=== PATIENT | male | born 1970 | race African-American/Black ===

== ENCOUNTER 2024-06-30 10:58 | Emergency (ER) | payer BC, SELFPAY ==
--- NOTE | ~2024-06-30 | XR_ITS ---
EXAMINATION: XR chest 1V portable DATE: 06/30/2024 12:51 INDICATION: Epigastric abdominal pain. TECHNIQUE: A single frontal view of the chest was obtained. COMPARISON: None. FINDINGS: There is no pneumonia, pleural effusion, or pneumothorax. The heart size is normal. IMPRESSION: 1. No acute cardiopulmonary disease. Reviewed, dictated and finalized at location B.
[2024-06-30 11:00] VITALS: BP 131/83; PULSE 71; RESP 16; TEMP 36.4; O2SAT 100
[2024-06-30 11:20] VITALS: BP 121/78; PULSE 72; RESP 18; O2SAT 100
[2024-06-30 11:55] LABS: Basophils Percent Auto 0.6 % (0.2-1.2); Eosinophils Percent Auto 0.3 % (0-4.4); Hematocrit 42.8 % (42.0-52.0); Hemoglobin 14.2 g/dL (14.0-18.0); Lymphocytes Absolute Auto 1.15 K/mm3 (0.9-3.2); Lymphocytes Percent Auto 36.4 % (18.3-44.2); Mean Corpuscular HGB Conc 33.2 g/dl (32-36); Mean Corpuscular Hemoglobin 27.1 pg (26-34); Mean Corpuscular Volume 81.7 fl (80-100); Mean Platelet Volume 8.4 fl (7.4-10.4); Monocytes Absolute Auto 0.4 K/mm3 (0.1-0.6); Neutrophils Absolute Auto 1.6 K/mm3 (1.3-6.7); Neutrophils Percent Auto 50.7 % (45.5-73.1); Platelet Count Result 245 k/mm3 (150-375); Red Blood Count 5.24 M/mm3 (4.6-6.20); Red Cell Distribution Width 13.3 % (11.5-14.5); White Blood Count 3.2 K/mm3 (4.5-10.0)
[2024-06-30 11:58] LABS: Add Urine Microscopic? NO; Appearance Urine Clear (Clear); Bilirubin Urine Negative (Negative); Blood Urine Negative (Negative); Color Urine Yellow (Yellow); Glucose Urine UA Negative (Negative); Ketones Urine Trace mg/dL (Negative); Leukocyte Esterase Ur Negative LEU/UL (Negative); Nitrate Urine Negative (Negative); Protein Urine Negative (Negative); Specific Grav Ur 1.012 (1.001-1.035); Urobilinogen Urine 0.2 mg/dL (<2.0)
[2024-06-30 12:06] LABS: Alanine Aminotransferase 24 U/L (6-50); Albumin Level 4.5 g/dL (3.5-5.1); Alkaline Phosphatase 67 U/L (38-126); Anion Gap 8 mmol/L (4-12); Aspartate Amino Transferase 28 U/L (17-59); Bilirubin,Total 0.7 mg/dL (0.2-1.3); Blood Urea Nitrogen 11 mg/dL (9-20); Calcium 9.8 mg/dL (8.4-10.2); Carbon Dioxide 27 mmol/L (22-30); Chloride 102 mmol/L (98-107); Estimated CRCL calculation 85 ml/min; Estimated Glomerular Filt Rate > 60; Glucose 96 mg/dL (65-110); Lipase 65 U/L (23-300); Potassium 3.9 mmol/L (3.4-5.0); Sodium 137 mmol/L (137-145)
--- NOTE | 2024-06-30 12:08 | ECG_ITS ---
Test Date: 2024-06-30 12:48:37 Measurements Intervals [place] Rate: 68 P: 68 HI: 173 QRS: 73 QRSD: 89 T: 71 QT: 381 QTc: 407 Interpretive Statements SINUS RHYTHM No previous ECG available for comparison Electronically Signed On 07-01-2024 16:39:00 CDT by Bala Tobar M.D.
--- NOTE | 2024-06-30 12:24 | ED_ITS ---
HPI - Abdominal Pain General Chief Complaint: Abdominal Pain Stated Complaint: chest and abd pain with eating, heartburn Time Seen by Provider: 06/30/24 12:02 History of Present Illness HPI narrative: 54-year-old male with no significant past medical history presenting to the emergency department for evaluation of left upper quadrant abdominal discomfort and epigastric burning with GERD secondary to food. Patient states for last 5-7 days he has been having GERD like symptoms with food despite never having any history of GERD or reflux. No history of gallstones or gallbladder issues. No right-sided abdominal tenderness or quadrant pain. No back pain. No shortness of breath, nausea vomiting, fever chills. He takes Tums at home which does alleviate the symptoms with a come back with eating and drinking. Has not been seen by GI doctor or his primary care provider for this. Has an upcoming appointment this week with his PCP as a wellness annual visit. No allergies. No significant drinking, vaping, smoking. No drug use. No injury or trauma. Related Data Allergies Allergy/AdvReac Type Severity Reaction Status Date / Time Penicillins Allergy Unknown Verified 06/30/24 11:00 Review of Systems 2 Review of Systems: As reviewed above in HPI Exam 2 Narrative: GENERAL: [Well-appearing, well-nourished, and in no acute distress.] HEAD: [Normocephalic, atraumatic.] EYES: [PERRLA and EOMI.] ENT: Nares clear, no rhinorrhea or epistaxis. Mucous membranes moist. NECK: Supple. CHEST: [Clear to auscultation. No respiratory distress.] HEART: [Regular rate and rhythm]. No murmur heard. [Normal peripheral pulses.] ABDOMEN: [Soft, nondistended], [nontender], [No rigidity or guarding] no tenderness in the right upper quadrant, no Jiménez sign, no overlying skin changes. EXTREMITIES: Normal range of motion. [No edema.] SKIN: Warm, dry, no rash. NEURO: [No focal deficits]. Alert and oriented [x3.] PSYCH: [Normal mood and affect.] Course Vital Signs Vital signs: Vital Signs Temperature 36.4 C 06/30/24 11:00 Pulse Rate 71 06/30/24 11:00 Respiratory Rate 16 06/30/24 11:00 Blood Pressure 131/83 06/30/24 11:00 Pulse Oximetry 100 06/30/24 11:00 Temperature 36.4 C 06/30/24 11:00 Pulse Rate 72 06/30/24 11:20 Respiratory Rate 18 06/30/24 11:20 Blood Pressure 121/78 06/30/24 11:20 Pulse Oximetry 100 06/30/24 11:20 MDM - Abdominal Pain MDM Narrative Medical decision making narrative: 54-year-old male presenting with left upper quadrant epigastric pain they describes as a burning sensation with GERD like symptoms after eating. Symptoms going on for last 5-7 days and responsive to Tums and [id number] therapy. He is otherwise well-appearing with normal vital signs. Soft nontender nondistended abdomen. No right upper quadrant tenderness, no back pain. No Jiménez sign. Considerations presently are for gastritis, gastroenteritis, GERD, peptic ulcer disease, delayed gastric emptying, low suspicion ACS or cardiac in origin. Given his age a workup was ordered including a troponin, CBC, CMP, lipase, EKG, upright chest x-ray. He was treated symptomatically with Maalox and Pepcid with improved pain control afterwards. Placed on director of cardiac cath lab and pulse oximetry and frequently re-evaluated. Workup shows no leukocytosis or anemia. Normal platelet count. Electrolytes within normal limits, normal renal and hepatic function panel. Negative troponin. Urinalysis shows no signs of infection. Chest x-ray shows no acute cardiopulmonary process. EKG shows normal sinus rhythm with early repolarization pattern. Patient is safe and stable for discharge home at this time. Medical Records Attestation: I reviewed the patient's medical records. Lab Data Attestation: I reviewed the patient's lab results. 06/30/24 11:48 06/30/24 11:48 Labs: Lab Results 06/30/24 Range/Units 11:48 WBC 3.2 L (4.5-10.0) K/mm3 RBC 5.24 (4.6-6.20) M/mm3 Hgb 14.2 (14.0-18.0) g/dL Hct 42.8 (42.0-52.0) % MCV 81.7 (80-100) fl MCH 27.1 (26-34) pg MCHC 33.2 (32-36) g/dl RDW 13.3 (11.5-14.5) % Plt Count 245 (150-375) k/mm3 MPV 8.4 (7.4-10.4) fl Immature Gran % (Auto) 0.0 (0-0.5) % Neut % (Auto) 50.7 (45.5-73.1) % Lymph % (Auto) 36.4 (18.3-44.2) % Woodward % (Auto) 12.0 H (2.6-8.5) % Eos % (Auto) 0.3 (0-4.4) % Baso % (Auto) 0.6 (0.2-1.2) % Lymph # (Auto) 1.15 (0.9-3.2) K/mm3 Woodward # (Auto) 0.4 (0.1-0.6) K/mm3 Eos # (Auto) 0.0 (0-0.3) K/mm3 Baso # (Auto) 0.0 (0.0-0.1) K/mm3 Abs Immat Gran (auto) 0.00 (0.00-0.031) K/mm3 Absolute Neuts (auto) 1.6 (1.3-6.7) K/mm3 Absolute Nucleated RBC 0.000 (0.0-0.012) K/mm3 Nucleated RBC % 0.0 (0.0-0.2) % Sodium 137 (137-145) mmol/L Potassium 3.9 (3.4-5.0) mmol/L Chloride 102 (98-107) mmol/L Carbon Dioxide 27 (22-30) mmol/L Anion Gap 8 (4-12) mmol/L BUN 11 (9-20) mg/dL Creatinine 0.82 (0.7-1.3) mg/dL Estim Creat Clear Calc 85 ml/min Estimated GFR > 60 (59 - ) Glucose 96 (65-110) mg/dL Calcium 9.8 (8.4-10.2) mg/dL Total Bilirubin 0.7 (0.2-1.3) mg/dL AST 28 (17-59) U/L ALT 24 (6-50) U/L Alkaline Phosphatase 67 (38-126) U/L Troponin I < 0.012 (0.000-0.034) ng/mL Total Protein 7.0 (6.3-8.2) g/dL Albumin 4.5 (3.5-5.1) g/dL Lipase 65 (23-300) U/L Urine Color Yellow (Yellow) Urine Appearance Clear (Clear) Urine pH 6.0 (5.0-9.0) Ur Specific [place] 1.012 (1.001-1.035) Urine Protein Negative (Negative) mg/dL Urine Glucose (UA) Negative (Negative) mg/dL Urine Ketones Trace H (Negative) mg/dL Ur Blood (Man) Negative (Negative) Urine Nitrate Negative (Negative) Urine Bilirubin Negative (Negative) Urine Urobilinogen 0.2 (<2.0) mg/dL Leukocyte Esterase Rfl Negative (Negative) SHANE/UL Imaging Data Attestation: I personally reviewed and interpreted this imaging study as follows: My impression: Impressions Chest X-Ray 06/30/24 13:00 IMPRESSION: 1. No acute cardiopulmonary disease. Radiologist's impression: ITS Impressions Chest X-Ray 06/30/24 13:00 IMPRESSION: 1. No acute cardiopulmonary disease. ECG Data EKG #1: Attestation: I personally reviewed and interpreted this ECG as follows: ECG completion date: 06/30/24 ECG completion time: 12:48 Prior ECG tracings: not available for review Interpretation: Benign early repolarization pattern with broad J points slightly elevated in multiple leads. No ST segment elevations, no depressions or inversions. Regular rate, regular rhythm and axis. No QTC prolongation, QTC 407, QRS 89, AR interval 173. Final interpretation normal sinus rhythm with benign repolarization pattern Discharge Plan Discharge Clinical Impression: Gastritis, GERD (gastroesophageal reflux disease) Patient Disposition: Home, Self-Care Condition: Stable Instructions: Antibiotic Form, Gastritis (DC), Diet for Stomach Ulcers and Gastritis (ED), GERD (Gastroesophageal Reflux Disease) (DC) Additional Instructions: Your cardiac workup was unremarkable. No sign of infection on your laboratory studies, no bleeding, x-ray without any concerns. Likely you have gastritis or GERD and we will prescribe some medications to take on a daily basis to help with the symptoms. Follow-up with regular doctor and you might end up getting a GI referral for endoscopy if this is not responding to traditional therapy. Return with any new or worsening concerns at any time. Patient Language: Uzbek Prescriptions: New alum-mag hydroxide-simeth [Maalox Advanced] 200-200-20 mg/5 mL suspension 15 ml PO QID PRN (Reason: dyspepsia) Qty: 3000 0RF Rx Instructions: administer between meals and at bedtime pantoprazole [Protonix] 20 mg tablet,delayed release (DR/EC) 20 mg PO HS 28 Days Qty: 28 0RF Follow-up/Referrals: Eleuterio,Tiara Cuello MD [Primary Care Provider] - Time of Disposition: 14:45
[2024-06-30] MEDS: MAG HYDROX/AL HYDROX/SIMETH 30 ML UDC PO (12:30)
[2024-06-30] MEDS: FAMOTIDINE 20 MG/2 ML VIAL IV PUSH (12:30)
--- OUTSIDE RECORDS SUMMARY | 2024-06-30 12:49 | XMS_ITS | Clinical Summary ---
Author Organization [facility] Address [address] [place] [address] Care Team Providers Care Account Advisor Name Role Phone Poli Cochran DO Primary Care Provider [phone] Source Comments [facility],non-owned Affiliates and Associated Physician Practices is amultiple site organization consisting of ambulatory clinics and hospital sitesin [place], [place], [place]. This disclosure is being madepursuant to the Care Everywhere program and may not contain all information available regarding this patient. Last updated 18.[facility] Allergies Active Allergy Reactions Criticality Noted Date Comments Penicillins 05/17/2009 Medications * Be aware that medications may not be up to date on this document. Alwaysverify current medications with the patient. Medication Sig Dispensed Refills Start Date End Date Status fish oil/omega-3 fatty acids (FISH OIL) 1000 MG capsule Take 1,000 mg by mouth once daily. Active Multiple Vitamins-Minerals (MJ MULTIVITAMIN FOR MEN) TABS Take 1 Tab by mouth once daily. Active Probiotic Product (PROBIOTIC DAILY PO) Take by mouth once daily Active CINNAMON PO Active OtherIndications:Tumeri c Take 500 mg by mouth 2 times daily Reasons: Tumeric Active Iron Combinations (IRON COMPLEX PO) Active melatonin 5 MG capsule Take 5 mg by mouth at bedtime Active Ascorbic Acid (DOROTEO-C PO) Active Glucosamine HCl (GLUCOSAMINE PO) Active Marco A, Zingiber officinalis, (MARCO A ROOT PO) Active BLACK ELDERBERRY PO Activ e CRANBERRY PO Active VITAMIN D PO Active MILK THISTLE PO Active BIOTIN PO Active Active Problems Problem Noted Date Diagnosed Date Onychomycosis 02/26/2018 Immunizations Name Administration Dates Next Due INFLUENZA VACCINE 01/04/2018, 6,01/17/2015,02/15/2014,02/01/2013,,02/06/2011 TDAP (7yrs+) 10/15/2011 Social History Tobacco Use Types Packs/Day Years Used Date Smoking Tobacco: Never Smokeless Tobacco: Never Alcohol Use Standard Drinks/Week Comments Yes 0 (1 standard drink = 0.6 oz pur e alcohol) occasionally PHQ-2 Answer Date Recorded PHQ2 TOTAL SCORE 0 2021 Sex and Gender Information Value Date Recorded Sex Assigned at Male 12/22/2020 12:23 PM CDT Gender Identity Male 12/22/2020 12:23 PM CDT Sexual Orientation Straight 12/22/2020 12 :23 PM CDT Last Filed Vital Signs Vital Sign Reading Time Taken Comments Blood Pressure 118/75 2021 7:41 AM TABLE INSPECTOR Pulse 69 2021 7:41 AM TABLE INSPECTOR Temperature 36.6 C (97.9 F) 05/02/2020 7:34 AM TABLE INSPECTOR Respiratory Rate 16 2021 7:41 AM TABLE INSPECTOR Oxygen Saturation 99% 05/02/2020 7:34 AM TABLE INSPECTOR Inhaled Oxygen Concentration - - Weight 94.3 kg (208 lb) 2021 7:41 AM TABLE INSPECTOR Height 172.7 cm (5' 8 ) 2021 7:41 AM TABLE INSPECTOR Body Mass Index 31.63 2021 7:41 AM TABLE INSPECTOR Plan of Treatment Health Maintenance Due Date Last Done Comments COLOGUARD (AGES 45-75) - COLON CA SCREENING 1971 COLON MONITORING 1971 COLONOSCOPY - COLON CA SCREENING 1971 CT COLONOGRAPHY - COLON CA SCREENING 1971 Colorectal Cancer Screening 1971 FIT - COLON CA SCREENING 1971 FLEX SIG - COLON CA SCREENING 1971 HIV SCREENING 1986 HEPATITIS C SCREENING 04/26/1989 HEPATITIS B VACCINE (1 of 3 - 19+ 3-dose series) 1990 PNEUMOCOCCAL VACCINE 50+ (1 of 1 - PCV) 2021 ZOSTER VACCINE (1 of 2) 2021 DTAP/TDAP/TD VACCINES (2 - Td or Tdap) 10/14/2021 10/15/2011 COVID-19 VACCINE (3 - season) 2023 04/17/2021, 06/25/2020 INFLUENZA VACCINE (#1) 2023 , 01/21/2021, 01/24/2020, Additional history exists DEPRESSION SCREENING 04/20/2024 2021 SCREENING FOR DIABETES 2024 2, 05/02/2020, 03/01/2019, Additional history exists LIPID TESTING 2026 2021, 04/20, 03/01/2019, Additional history exists HIB VACCINE Aged Out No longer eligi ble based on patient's age to complete this topic HPV VACCINE Aged Out No longer eligi ble based on patient's age to complete this topic MENINGOCOCCAL (Group B) VACCINE SHARED DECISION-MAKING Aged Out No longer eligible based on patient's age to complete this topic MENINGOCOCCAL GROUPS A/C/Y/W VACCINE Aged Out No longer eligible based on patient's age to complete this topic PNEUMOCOCCAL VACCINE Aged Out No long er eligible based on patient's age to complete this topic Procedures Procedure Name Priority Date/Time Associated Diagnosis Comments COMPREHENSIVE METABOLIC PANEL Routine 2021 8:19 AM TABLE INSPECTOR Routine general medical examination at a health care facility LIPID PROFILE Routine 2021 8:19 AM TABLE INSPECTOR Routine general medical examination at a health care facility from Last 3 Months or Most Recently Relevant to Health Maintenance Results * COMPREHENSIVE METABOLIC PANEL (2021 8:19 AM TABLE INSPECTOR) Glucose 101 70 - 105 mg/dL [facility] ACCOUNT BILL BUN 10 8.4 - 25.7 mg/dL [facility] ACCOUNT BILL Creatinine 0.96 0.72 - 1.25 mg/dL [facility] ACCOUNT BILL eGFR by MDRD >60 >60 mL/min/1.7 3m2 [facility] ACCOUNT BILL eGFR by MDRD >60 >60 mL/min/1.7 3m2 [facility] ACCOUNT BILL Sodium 139 136 - 145 mmol/L [facility] ACCOUNT BILL Potassium 4.5 3.5 - 5.1 mmol/L [facility] ACCOUNT BILL Chloride 103 98 - 107 mmol/L [facility] ACCOUNT BILL CO2 28 23 - 31 mmol/L [facility] ACCOUNT BILL Calcium 9.9 8.4 - 10.4 mg/dL [facility] ACCOUNT BILL Protein Total 7.3 6.4 - 8.3 gm/dL [facility] ACCOUNT BILL Albumin 4.4 3.5 - 5.2 gm/dL [facility] ACCOUNT BILL Bilirubin Total 0.7 0.2 - 1.2 mg/dL [facility] ACCOUNT BILL Alkaline Phosphatase 64 40 - 150 U/L [facility] ACCOUNT BILL AST 22 5 - 34 U/L [facility] ACCOUNT BILL ALT 22 0 - 61 U/L [facility] ACCOUNT BILL Comment:FASTING Blood BLOOD SPECIMEN / Unknown 2021 8:19 AM TABLE INSPECTOR 2021 Narrative Resulting Agency Comment Lab Testing performed at: [place] [address] [address] [place] [id number] Poli Cochran DO LAB - CHEMISTRY DUTCH AL[facility] ACCOUNT BILL [address] [place] [address] * (ABNORMAL) LIPID PROFILE (2021 8:19 AM TABLE INSPECTOR) Cholesterol 203(H) <200 mg/dL [facility] ACCOUNT BILL Triglycerides 55 <150 mg/dL [facility] ACCOUNT BILL HDL Cholesterol 58 >40 mg/dL [facility] ACCOUNT BILL VLDL Calculated 11 <=30 mg/dL [facility] ACCOUNT BILL LDL Calculated 134(H) <130 mg/dL [facility] ACCOUNT BILL Comment:FASTING Blood BLOOD SPECIMEN / Unknown 2021 8:19 AM TABLE INSPECTOR 2021 Narrative Resulting Agency Comment Lab Testing performed at: [place] [address] [address] [place] [id number] Poli Cochran DO LAB - CHEMISTRY DUTCH L[facility] ACCOUNT BILL [address] [place] [address] from Last 3 Months or Most Recently Relevant to Health Maintenance Care Teams Account Advisor Relationship Specialty Start Date End Date Poli Cochran DO [address] [place] [address] PCP - General 05/17/09
--- OUTSIDE RECORDS SUMMARY | 2024-06-30 12:49 | XMS_ITS | Referral Summary ---
Author Organization [facility] Address [address] [place] [address] Care Team Providers Care Shipping And Receiving Associate Name Role Phone Poli Cochran DO Primary Care Provider [phone] Source Comments [facility],non-owned Affiliates and Associated Physician Practices is amultiple site organization consisting of ambulatory clinics and hospital sitesin [place], [place], [place] and [place]. This disclosure is being madepursuant to the Care Everywhere program and may not contain all information available regarding this patient. Last updated 18.[facility] Allergies Active Allergy Reactions Criticality Noted [...] Comments Blood Pressure 118/75 2021 7:41 AM REGISTERED DIETICIAN Pulse 69 2021 7:41 AM REGISTERED DIETICIAN Temperature 36.6 C (97.9 F) 05/02/2020 7:34 AM REGISTERED DIETICIAN Respiratory Rate 16 2021 7:41 AM REGISTERED DIETICIAN Oxygen Saturation 99% 05/02/2020 7:34 AM REGISTERED DIETICIAN Inhaled Oxygen Concentration - - Weight 94.3 kg (208 lb) 2021 7:41 AM REGISTERED DIETICIAN Height 172.7 cm (5' 8 ) 2021 7:41 AM REGISTERED DIETICIAN Body Mass Index 31.63 2021 7:41 AM REGISTERED DIETICIAN Plan of Treatment Not on file Procedures Procedure Name Priority Date/Time Associated Diagnosis Comments COMPREHENSIVE METABOLIC PANEL Routine 2021 8:19 AM REGISTERED DIETICIAN Routine general medical examination at a health care facility LIPID PROFILE Routine 2021 8:19 AM REGISTERED DIETICIAN Routine general medical examination at a health care facility from Last 3 Months or Most Recently Relevant to Health Maintenance Results * COMPREHENSIVE METABOLIC PANEL (2021 8:19 AM REGISTERED DIETICIAN) Glucose 101 70 - 105 mg/dL [facility] [...] BLOOD SPECIMEN / Unknown 2021 8:19 AM REGISTERED DIETICIAN 2021 Narrative Resulting Agency Comment Lab Testing performed at: [address] [place] [id number] Poli Cochran DO LAB - CHEMISTRY DUTCH LAM[facility] ACCOUNT BILL [address] [place] [address] * (ABNORMAL) LIPID PROFILE (2021 8:19 AM REGISTERED DIETICIAN) Cholesterol 203(H) <200 mg/dL [facility] ACCOUNT BILL Triglycerides 55 <150 mg/dL [facility] ACCOUNT BILL HDL Cholesterol 58 >40 mg/dL [facility] ACCOUNT BILL VLDL Calculated 11 <=30 mg/dL [facility] ACCOUNT BILL LDL Calculated 134(H) <130 mg/dL [facility] ACCOUNT BILL Comment:FASTING Blood BLOOD SPECIMEN / Unknown 2021 8:19 AM REGISTERED DIETICIAN 2021 Narrative Resulting Agency Comment Lab Testing performed at: [facility] [address] [place] [id number] Poli Cochran DO LAB - CHEMISTRY DUTCH LAMB [facility] ACCOUNT BILL [address] [place] [address] from Last 3 Months or Most Recently Relevant to Health Maintenance Care Teams Shipping And Receiving Associate Relationship Specialty Start Date End Date Poli Cochran DO [address] [place] [address] PCP - General 05/17/09
--- OUTSIDE RECORDS SUMMARY | 2024-06-30 12:49 | XMS_ITS | Clinical Summary ---
Author Organization [facility] Address [address] [place] [address] Care Team Providers Care Automation Sales Manager Name Role Phone Unavailable Primary Care Provider Unavailabl e Social History Tobacco Use Types Packs/Day Years Used Date Smoking Tobacco: Never Assessed Sex and Gender Information Value Date Recorded Sex Assigned at Not on file Legal Sex Male 11:01 AM TEST TECH Gender Identity Not on file Sexual Orientation Not on file Plan of Treatment Health Maintenance Due Date Last Done Comments Hepatitis C Virus (HCV) Screening 1971 TdaP Immunization 1971 Hepatitis B Immunization (1 of 3 - 19+ 3-dose series) 1990 Colonoscopy 2016 Colorectal Cancer Screening 2016 Cologuard 2021 Immunochemical Fecal Occult Blood 2021 Pneumococcal Immunization (5 0+ years) (1 of 1 - PCV) 2021 Zoster Immunization (1 of 2) 2021 Influenza Immunization (#1) 2023 01/24/2020 SARS-COV-2 Immunization ( - 2023-25 season) 2023 Respiratory Syncytial Virus (RSV) Immunization (Adult) (1 - 1-dose 75+ series) 2046 Meningococcal Immunization (ACWY) Aged Out No longer eligible based on patient's age to complete this topic Pneumococcal Immunization Combined Aged Out No longer eligible based on patient's age to complete this topic Rotavirus Immunization Aged Out No lo nger eligible based on patient's age to complete this topic
--- OUTSIDE RECORDS SUMMARY | 2024-06-30 12:49 | XMS_ITS | Encounter Summary ---
Author Organization [facility] Address [address] [place] [address] Care Team Providers Care Button Cutter Name Role Phone Poli Cochran DO Primary Care Provider [phone] Encounter Details Date Type Department Care Team (Late st Contact Info) Description 10/15/2011 [facility]PT Poli Cochran DO [address] [place] [address] Social History Tobacco Use Types Packs/Day Years Used Date Smoking Tobacco: Never Smokeless Tobacco: Never Alcohol Use Standard Drinks/Week Comments Yes 0 (1 standard drink = 0.6 oz pur e alcohol) occasionally Sex and Gender Information Value Date Recorded Sex Assigned at Male 12/22/2020 12:23 PM CDT Gender Identity Male 12/22/2020 12:23 PM CDT Sexual Orientation Straight 12/22/2020 12 :23 PM CDT documented as of this encounter Plan of Treatment Not on file documented as of this encounter Visit Diagnoses Not on filedocumented in this encounter Care Teams Button Cutter Relationship Specialty Start Date End Date Poli Cochran DO [address] [place] [address] PCP - General 05/17/09 documented as of this encounter
--- OUTSIDE RECORDS SUMMARY | 2024-06-30 12:49 | XMS_ITS | Patient Health Summary ---
Author Organization [facility] Address [address] [address] Care Team Providers Care Edge Kitter Name Role Phone CochranChanoPoli Primary Care Provider [phone] Note from [facility],non-owned Affiliates and Associated Physician Practices is amultiple site organization consisting of ambulatory clinics and hospital sitesin [place], [place], [place] and [place]. This disclosure is being madepursuant to the Care Everywhere program and may not contain all information available regarding this patient. Last updated 18.[facility] [place]cie Allergies * Penicillins Medications * Be aware that medications may not be up to date on this document. Alwaysverify current medications with the patient. * fish oil/omega-3 fatty acids (FISH OIL) 1000 MG capsule Take 1,000 mg by mouth once daily. * Multiple Vitamins-Minerals (MJ MULTIVITAMIN FOR MEN) TABS Take 1 Tab by mouth once daily. * Probiotic Product (PROBIOTIC DAILY PO) Take by mouth once daily * CINNAMON PO * Other Take 500 mg by mouth 2 times daily Reasons: Tumeric * Iron Combinations (IRON COMPLEX PO) * melatonin 5 MG capsule Take 5 mg by mouth at bedtime * Ascorbic Acid (DOROTEO-C PO) * Glucosamine HCl (GLUCOSAMINE PO) * Marco A, Zingiber officinalis, (MARCO A ROOT PO) * BLACK ELDERBERRY PO * CRANBERRY PO * VITAMIN D PO * MILK THISTLE PO * BIOTIN PO Active Problems Problem Noted Date Diagnosed Date Onychomycosis 02/26/2018 Immunizations * INFLUENZA VACCINE(Given 01/04/2018, 01/23/2016, 01/17/2015, 02/15/2014, 02/01/2013, 02/04/2012, 02/06/2011) * TDAP (7yrs+)(Given 10/15/2011) Social History Tobacco Use Types Packs/Day Years [...] Comments Blood Pressure 118/75 2021 7:41 AM NURSES SUPERVISOR Pulse 69 2021 7:41 AM NURSES SUPERVISOR Temperature 36.6 C (97.9 F) 05/02/2020 7:34 AM NURSES SUPERVISOR Respiratory Rate 16 2021 7:41 AM NURSES SUPERVISOR Oxygen Saturation 99% 05/02/2020 7:34 AM NURSES SUPERVISOR Inhaled Oxygen Concentration - - Weight 94.3 kg (208 lb) 2021 7:41 AM NURSES SUPERVISOR Height 172.7 cm (5' 8 ) 2021 7:41 AM NURSES SUPERVISOR Body Mass Index 31.63 2021 7:41 AM NURSES SUPERVISOR Procedures * TSH REFLEX FREE T4(Performed 2021) Performed for Routine general medical examination at a health care facility * LIPID PROFILE(Performed 2021) Performed for Routine general medical examination at a health care facility * COMPREHENSIVE METABOLIC PANEL(Performed 2021) Performed for Routine general medical examination at a health care facility * CBC W AUTO DIFFERENTIAL(Performed 2021) Performed for Routine general medical examination at a health care facility * PROSTATE SPECIFIC ANTIGEN SCREEN(Performed 05/02/2020) Performed for Routine general medical examination at a health care facility * TSH(Performed 05/02/2020) Performed for Routine general medical examination at a health care facility * LIPID PROFILE(Performed 05/02/2020) Performed for Routine general medical examination at a health care facility * COMPREHENSIVE METABOLIC PANEL(Performed 05/02/2020) Performed for Routine general medical examination at a health care facility * CBC W AUTO DIFFERENTIAL(Performed 05/02/2020) Performed for Routine general medical examination at a health care facility * TSH(Performed 03/01/2019) Performed for Routine general medical examination at a health care facility * LIPID PROFILE(Performed 03/01/2019) Performed for Routine general medical examination at a health care facility * COMPREHENSIVE METABOLIC PANEL(Performed 03/01/2019) Performed for Routine general medical examination at a health care facility * CBC W AUTO DIFFERENTIAL(Performed 03/01/2019) Performed for Routine general medical examination at a health care facility * PROSTATE SPECIFIC ANTIGEN SCREEN(Performed 02/26/2018) Performed for Routine general medical examination at a health care facility * TSH(Performed 02/26/2018) Performed for Routine general medical examination at a health care facility * LIPID PROFILE(Performed 02/26/2018) Performed for Routine general medical examination at a health care facility * COMPREHENSIVE METABOLIC PANEL(Performed 02/26/2018) Performed for Routine general medical examination at a health care facility * CBC W AUTO DIFFERENTIAL(Performed 02/26/2018) Performed for Routine general medical examination at a health care facility * OCCULT BLOOD FECES 1-3 SCREEN POC (AMB) STL(Performed 02/26/2018) Performed for Routine general medical examination at a health care facility * T4 TOTAL(Performed 02/24/2017) Performed for Irregular heart beat * TSH(Performed 02/24/2017) Performed for Irregular heart beat * LIPID PROFILE(Performed 02/24/2017) Performed for Routine general medical examination at a health care facility * COMPREHENSIVE METABOLIC PANEL(Performed 02/24/2017) Performed for Routine general medical examination at a health care facility * CBC W AUTO DIFFERENTIAL(Performed 02/24/2017) Performed for Routine general medical examination at a health care facility * EKG 12-LEAD(Performed 02/24/2017) Performed for Irregular heart beat * MRI LUMBAR SPINE WO CONTRAST(Performed 03/21/2016) Performed for Acute left-sided low back pain without sciatica * TSH(Performed 09/12/2015) Performed for Routine general medical examination at a health care facility * PROSTATE SPECIFIC ANTIGEN SCREEN(Performed 09/12/2015) Performed for Routine general medical examination at a health care facility * LIPID PROFILE(Performed 09/12/2015) Performed for Routine general medical examination at a health care facility * COMPREHENSIVE METABOLIC PANEL(Performed 09/12/2015) Performed for Routine general medical examination at a health care facility * CBC W AUTO DIFFERENTIAL(Performed 09/12/2015) Performed for Routine general medical examination at a health care facility * US SCROTUM W DOPPLER(Performed 07/31/2010) Performed for Testicular mass * XR LUMBAR SPINE 2 OR 3VW(Performed 05/08/2010) Performed for Lower back pain Results * TSH REFLEX FREE T4 (2021 8:19 AM NURSES SUPERVISOR) Pathologist [facility] [place] TSH 0.909 0.350 - 4.940 uIU/mL [facility] ACCOUNT BILL Comment: FASTING Blood BLOOD SPECIMEN / Unknown 2021 8:19 AM NURSES SUPERVISOR 2021 Narrative Resulting Agency Comment Lab Testing performed at: [address] [place] [phone] Poli Cochran DO LAB - CHEMISTRY DUTCH LAMB [facility] ACCOUNT BILL [address] [place] [address] * (ABNORMAL) CBC WITH DIFFERENTIAL (2021 8:19 AM NURSES SUPERVISOR) Only the most recent of6 resultswithin the time period is included. Pathologist [facility] [place] WBC 3.2(L) 4.4 - 10.7 x10E9/L [facility] ACCOUNT BILL RBC 5.42(H) 3.80 - 5.40 x10E12/L [facility] ACCOUNT BILL Hemoglobin 14.3 12.0 - 17.6 gm/dL [facility] ACCOUNT BILL Hematocrit 46.2 35.2 - 51.7 % [facility] ACCOUNT BILL MCV 85.2 80.7 - 98.3 fl [facility] ACCOUNT BILL MCH 26.4(L) 26.7 - 34.0 pg [facility] ACCOUNT BILL MCHC 31.0 30.8 - 35.9 gm/dL [facility] ACCOUNT BILL RDW 13.7 12.1 - 14.9 % [facility] ACCOUNT BILL Platelet Count 295 153 - 416 x10E9/L [facility] ACCOUNT BILL Comment:MPV FL BLOOD ([facility]) 8 .9 fl 9.4-12.9 L Granulocytes % 39.8(L) 44.0 - 73.0 % [facility] ACCOUNT BILL Lymphocytes % 44.2(H) 20.0 - 43.0 % [facility] ACCOUNT BILL Monocytes % 14.2(H) 5.0 - 13.0 % [facility] ACCOUNT BILL Eosinophils % 0.9 0.0 - 6.0 % [facility] ACCOUNT BILL Basophils % 0.9 0.0 - 2.0 % [facility] ACCOUNT BILL Granulocytes Absolute 1.26(L) 2.01 - 7.14 x10E9/L [facility] ACCOUNT BILL Lymphocytes Absolute 1.40 1.07 - 3.94 x10E9/L [facility] ACCOUNT BILL Monocytes Absolute 0.45 0.26 - 1.07 x10E9/L [facility] ACCOUNT BILL Eosinophils Absolute 0.03 0 - 0.47 x10E9/L [facility] ACCOUNT BILL Basophils Absolute 0.03 0 - 0.08 x10E9/L [facility] ACCOUNT BILL Immature Granulocytes 0.0 0 - 1 % [facility] ACCOUNT BILL Immature Granulocytes Absolute 0.00 0.00 - 0.06 x10E9/L [facility] ACCOUNT BILL nRBC 0 /100 WBC [facility] ACCOUNT BILL Comment: FASTING Blood BLOOD SPECIMEN / Unknown 2021 8:19 AM NURSES SUPERVISOR 2021 Narrative Resulting Agency Comment Lab Testing performed at: [address] [place] [phone] Poli Cochran DO LAB - HEMATOLOGY ORD ERABLES [facility] ACCOUNT BILL [address] [place] [address] * COMPREHENSIVE METABOLIC PANEL (2021 8:19 AM NURSES SUPERVISOR) Only the most recent of6 resultswithin the time period is included. Glucose 101 70 - 105 mg/dL [facility] [...] BLOOD SPECIMEN / Unknown 2021 8:19 AM NURSES SUPERVISOR 2021 Narrative Resulting Agency Comment Lab Testing performed at: [address] [place] [phone] Poli Cochran DO LAB - CHEMISTRY DUTCH LAMB [facility] ACCOUNT BILL [address] [place] [address] * (ABNORMAL) LIPID PROFILE (2021 8:19 AM NURSES SUPERVISOR) Only the most recent of6 resultswithin the time period is included. Cholesterol 203(H) <200 mg/dL [facility] ACCOUNT BILL Triglycerides 55 <150 mg/dL [facility] ACCOUNT BILL HDL Cholesterol 58 >40 mg/dL [facility] ACCOUNT BILL VLDL Calculated 11 <=30 mg/dL [facility] ACCOUNT BILL LDL Calculated 134(H) <130 mg/dL [facility] ACCOUNT BILL Comment:FASTING Blood BLOOD SPECIMEN / Unknown 2021 8:19 AM NURSES SUPERVISOR 2021 Narrative Resulting Agency Comment Lab Testing performed at: [place] [address] [place] [id number] Poli Cochran DO LAB - CHEMISTRY ORDE ADONIS Performing Organization Address City/[facility]/ZIP Co de Phone Number [facility] ACCOUNT BILL [address] [place] [address] * PROSTATE SPECIFIC ANTIGEN SCREEN (05/02/2020 8:24 AM NURSES SUPERVISOR) Only the most recent of3 resultswithin the time period is included. Pathologist [facility] [place] PSA 0.71 0.00 - 4.00 ng/mL [facility] ACCOUNT BILL Blood BLOOD SPECIMEN / Unknown 05/02/2020 8:24 AM NURSES SUPERVISOR 05/02/2020 Narrative Resulting Agency Comment Lab Testing performed at: [address] [place] [phone] Poli Cochran DO LAB - CHEMISTRY ORDE ADONIS Performing Organization Address [facility] Co de Phone Number [facility] ACCOUNT BILL [address] [place] [address] * TSH (05/02/2020 8:24 AM NURSES SUPERVISOR) Only the most recent of5 resultswithin the time period is included. [facility] TSH 1.8965 0.35 - 4.94 uIU/mL [facility] ACCOUNT BILL Blood BLOOD SPECIMEN / Unknown 05/02/2020 8:24 AM NURSES SUPERVISOR 05/02/2020 Narrative Resulting Agency Comment Lab Testing performed at: [place] [address] [place] [phone] Poli Cochran DO LAB - CHEMISTRY ORDE ADONIS [facility] ACCOUNT BILL [address] [place] [address] * OCCULT BLOOD FECES 1-3 SCREEN POC (AMB) STL (02/26/2018) Occult Blood 1 negative Negative Occult Blood 2 negative Negative Occult Blood 3 negative Negative Card Lot Number [id number] Card Exp Date yes Yes Developer Lot Number [id number] Developer Expiration Date yes Yes QC Negative negative Negative QC Positive negative Stool STOOL SPECIMEN / Unknown 02/26/2018 Poli Cochran DO LAB - POINT OF CARE ORDERABLES * T4 TOTAL (02/24/2017 9:29 AM NURSES SUPERVISOR) T4 Total 8.5 4.7 - 13.3 ug/dL [facility] ACCOUNT BILL Comment:FASTING Blood BLOOD SPECIMEN / Unknown 02/24/2017 9:29 AM NURSES SUPERVISOR 02/24/2017 Narrative Resulting Agency Comment [facility] [address] [place] [phone] Poli Cochran DO LAB - CHEMISTRY DUTCH LAMB [facility] Organization Address City/State/ZIP Co de Phone Number [facility] ACCOUNT BILL [address] [place] [address] * EKG 12-LEAD (02/24/2017) Poli Aguilars DO ECG ORDERABLES * MRI LUMBAR SPINE WO CONTRAST (03/21/2016 3:44 PM NURSES SUPERVISOR) Anatomical Region Laterality Modality Spine Magnetic Resonan ce 03/21/2016 4:03 PM NURSES SUPERVISOR Impressions 03/21/2016 4:28 PM NURSES SUPERVISOR 1. Degenerative disc changes as described. 2. L1-2 mild central stenosis. 3. L3-4 posterior central left paracentral small disc protrusion without stenosis. 4. Other findings as above. Edited by Sofi Perales on 03/21/2016 4:11 PM Narrative 03/21/2016 4:28 PM NURSES SUPERVISOR MRI LUMBAR SPINE WITHOUT CONTRAST CLINICAL INDICATION: Low back pain and lumbar radiculopathy. Sciatica. TECHNIQUE: Sagittal and axial T1 and T2, sagittal STIR weighted images without contrast. COMPARISON: None. FINDINGS: Degenerative disc changes are present L1-2, L2-3, L3-4 and L4-5 with loss of T2-weighted signal and intervertebral disc space narrowing. The conus ends at the L1 level. There is no evidence of acute fracture or subluxation. No acute bone marrow edema is demonstrated. On dedicated axial images: L1-2: Diffuse posterior annular bulge is present. There is mild central stenosis. Bilateral facet arthropathy is present. The neural foramina are patent bilaterally. L2-3: Mild posterior annular bulge is present without overt central stenosis. There is bilateral facet arthropathy. Neural foramina are patent bilaterally. L3-4: Posterior central left paracentral small disc protrusion is present without overt central stenosis. The neural foramina are patent bilaterally. There is bilateral facet arthropathy. L4-5: Posterior annular bulge is present without overt central stenosis. The neural foramina are patent bilaterally. L5-S1: No focal disc protrusion, central canal stenosis or neural foraminal narrowing is present. Procedure Note Mike Saenz MD - 03/21/2016 MRI LUMBAR SPINE WITHOUT CONTRAST CLINICAL INDICATION: Low back pain and lumbar radiculopathy. Sciatica. TECHNIQUE: Sagittal and axial T1 and T2, sagittal STIR weighted images without contrast. COMPARISON: None. FINDINGS: Degenerative disc changes are present L1-2, L2-3, L3-4 and L4-5 with loss of T2-weighted signal and intervertebral disc space narrowing. The conus ends at the L1 level. There is no evidence of acute fracture or subluxation. No acute bone marrow edema is demonstrated. On dedicated axial images: L1-2: Diffuse posterior annular bulge is present. There is mild central stenosis. Bilateral facet arthropathy is present. The neural foramina are patent bilaterally. L2-3: Mild posterior annular bulge is present without overt central stenosis. There is bilateral facet arthropathy. Neural foramina are patent bilaterally. L3-4: Posterior central left paracentral small disc protrusion is present without overt central stenosis. The neural foramina are patent bilaterally. There is bilateral facet arthropathy. L4-5: Posterior annular bulge is present without overt central stenosis. The neural foramina are patent bilaterally. L5-S1: No focal disc protrusion, central canal stenosis or neural foraminal narrowing is present. IMPRESSION 1. Degenerative disc changes as described. 2. L1-2 mild central stenosis. 3. L3-4 posterior central left paracentral small disc protrusion without stenosis. 4. Other findings as above. Edited by Sofi Perales on 03/21/2016 4:11 PM Poli Cochran DO MR ORDERABLES * US SCROTUM WITH DOPPLER (07/31/2010 11:29 AM CDT) Anatomical Region Laterality Modality Pelvis Ultrasound 07/31/2010 12:4 7 PM CDT Impressions 07/31/2010 1:40 PM CDT Bilateral hydroceles. Right epididymal head cysts and a small intratesticular cyst, otherwise unremarkable. Narrative 07/31/2010 1:40 PM CDT INDICATION: Palpable lump of the scrotum. Grayscale and color Doppler ultrasound of the scrotal contents is performed. Both testicles are homogeneous without intratesticular masses identified. There is a small intratesticular cyst on the left measuring 2 mm. There are bilateral hydroceles present. Debris is seen within the hydrocele. There are small right epididymal cysts measuring 5 mm and 3 mm. The left testicle measures 4.1 x 2.1 x 3.1 cm. The right testicle measures 4.5 x 2.2 x 2.8 cm. There is normal symmetric arterial blood flow. Procedure Note Marisa Ford MD - 07/31/2010 INDICATION: Palpable lump of the scrotum. Grayscale and color Doppler ultrasound of the scrotal contents is performed. Both testicles are homogeneous without intratesticular masses identified. There is a small intratesticular cyst on the left measuring 2 mm. There are bilateral hydroceles present. Debris is seen within the hydrocele. There are small right epididymal cysts measuring 5 mm and 3 mm. The left testicle measures 4.1 x 2.1 x 3.1 cm. The right testicle measures 4.5 x 2.2 x 2.8 cm. There is normal symmetric arterial blood flow. IMPRESSION Bilateral hydroceles. Right epididymal head cysts and a small intratesticular cyst, otherwise unremarkable. Poli Cochran DO US ORDERABLES * XR LUMBAR SPINE 2 OR 3 VW (05/08/2010 6:19 PM NURSES SUPERVISOR) Anatomical Region Laterality Modality Spine Radiographic Nevin ging 05/08/2010 6:28 PM NURSES SUPERVISOR Impressions 05/08/2010 6:28 PM NURSES SUPERVISOR Normal lumbar spine. Narrative 05/08/2010 6:28 PM NURSES SUPERVISOR LUMBAR SPINE 05/08/2010 Indication: Low back pain AP, lateral and cone-down lateral views of the lumbar spine show the vertebral bodies to be maintained in normal alignment. There is no evidence of a fracture, disc space narrowing, bone destruction or other significant bony abnormality. Procedure Note Anthony Mcgowan MD - 05/08/2010 LUMBAR SPINE 05/08/2010 Indication: Low back pain AP, lateral and cone-down lateral views of the lumbar spine show the vertebral bodies to be maintained in normal alignment. There is no evidence of a fracture, disc space narrowing, bone destruction or other significant bony abnormality. IMPRESSION Normal lumbar spine. Poli Cochran DO DIAGNOSTIC IMAGING O RDERABLES Care Teams Edge Kitter Relationship Specialty Start Date End Date Poli Cochran DO [address] [place] [address] PCP - General 05/17/09
--- OUTSIDE RECORDS SUMMARY | 2024-06-30 12:49 | XMS_ITS | CONTINUITY OF CARE DOCUMENT ---
Author Name ari chapman Address Unknown Organization [facility] Address [id number] [place] [address] [address] [place] [address] Phone [phone] Care Team Providers Care Hvac/R Service Technician Name Role Phone Martínez Pacheco MD Unavailable JONATHAN TENORIO DO Unavailable JONATHAN TENORIO DO Unavailable INSURANCE PROVIDERS Payer name Policy type / Coverage type Lauren red libertarian ID [id number] [id number] Other [id number]
--- OUTSIDE RECORDS SUMMARY | 2024-06-30 12:49 | XMS_ITS | Data Portability ---
Author Organization [facility] [employer], Main Office Address [address] [place] [address] Assessment No assessment recorded. Plan of Treatment Reminders Order Date Submit Date Provider Last Modified By Organization Details Last Modified Time Details Appointments None recorded. Lab CBC w/ auto diff 2022 023 [email or web address] [facility] (Lab), [address] [place], [address], 3 17:53:28 lipid panel, serum 2022 023 [email or web address] Not available 3 09:33:51 PSA, serum or plasma 2022 023 [email or web address] Not available 3 09:37:11 CBC w/ auto diff 2022 023 [email or web address] Not available 3 09:23:40 TSH, serum or plasma 2022 023 [email or web address] Not available 3 09:27:39 CMP, serum or plasma 2022 023 [email or web address] Not available 3 09:29:18 erythrocyte sedimentati on rate by westergren method 2022 023 [email or web address] Not available 3 09:30:16 C-reactive protein, quantitativ e, serum or plasma 2022 023 [email or web address] Not available 3 09:31:10 vitamin D, 25-hydroxy, total, serum 2022 [facility]23 [email or web address] Not available 3 09:32:27 HbA1c (hemoglobin A1c), blood 2022 023 [email or web address] Not available 3 09:38:16 vitamin B12, serum 2022 023 [facility] gh36 Not available 3 09:41:26 Referral urologist referral 2022 023 Shashi Douglas MD, [address] [facility], [address], [place], [address], 3 10:33:00 Procedures None recorded. Surgeries None recorded. Imaging US, thyroid - *Please call patient to schedule* [address] [facility] ([facility]), [address] [place], [address], 3 09:15:46 CT, chest + abdomen + pelvis, w/ contrast - *please call pt to schedule* [facility] [address] [place], [address], 3 12:49:33 Medication Orders None recorded. Patient TargetsNo targets recorded. Patient InstructionsNo instructions recorded. Reason for Referral Urologist Referral for Large prostate Referring Physician: Destinee Gallagher, Family Medicine, Encounter Date: 10/01/2022 Results Created Date Observation Date Name Description Value Unit Range Abnormal Flag Note LastModifiedBy Organization Detail LastModifiedTime 08/28/19 23 08/28/2022 CBC WITH DIFFE RENTI AL/PL ATELE T WBC 2.7 x10e3 /uL 3.4-10 .8 below low normal Not Available [facility] ([facility]) [address] [facility], [place], [address], 08/28/2022 16:13:08 08/28/19 23 08/28/2022 CBC WITH DIFFE RENTI AL/PL ATELE T RBC 5.09 x10e6 /uL 4.14-5 .80 Not Available [facility] ([facility]) [address] [facility], [place], [address], 08/28/2022 16:13:08 08/28/19 23 08/28/2022 CBC WITH DIFFE RENTI AL/PL ATELE T hemoglobin 13.6 g/dL 13.0-1 7.7 Not Available [facility] ([facility]) [address] [facility], [place], [address], 08/28/2022 16:13:08 08/28/19 23 08/28/2022 CBC WITH DIFFE RENTI AL/PL ATELE T hematocrit 41.9 % 37.5-5 1.0 Not Available [facility] ([facility]) [address] [facility], [place], [address], 08/28/2022 16:13:08 08/28/19 23 08/28/2022 CBC WITH DIFFE RENTI AL/PL ATELE T MCV 82 fL 79-97 Not Available [facility] ([facility]) [address] [place], [address], 08/28/2022 16:13:08 08/28/19 23 08/28/2022 CBC WITH DIFFE RENTI AL/PL ATELE T MCH 26.7 pg 26.6-3 3.0 Not Available [facility] ([facility]) [address] [place], [address], 08/28/2022 16:13:08 08/28/19 23 08/28/2022 CBC WITH DIFFE RENTI AL/PL ATELE T MCHC 32.5 g/dL 31.5-3 5.7 Not Available [facility] ([facility]) [address] [place], [address], 08/28/2022 16:13:08 08/28/19 23 08/28/2022 CBC WITH DIFFE RENTI AL/PL ATELE T RDW 13.0 % 11.6-1 5.4 Not Available [facility] ([facility]) [address] [facility], [place], [address], 08/28/2022 16:13:08 08/28/19 23 08/28/2022 CBC WITH DIFFE RENTI AL/PL ATELE T platelets 269 x10e3 /uL 150-45 0 Not Available [facility] ([facility]) [address] [facility], [place], [address], 08/28/2022 16:13:08 08/28/19 23 08/28/2022 CBC WITH DIFFE RENTI AL/PL ATELE T neutrophils 30 % not estab. Not Available [facility] ([facility]) [address] [facility], [place], [address], 08/28/2022 16:13:08 08/28/19 23 08/28/2022 CBC WITH DIFFE RENTI AL/PL ATELE T lymphs 52 % not estab. Not Available [facility] ([facility]) [address] [facility], [place], [address], 08/28/2022 16:13:08 08/28/19 23 08/28/2022 CBC WITH DIFFE RENTI AL/PL ATELE T monocytes 15 % not estab. Not Available [facility] ([facility]) [address] [facility], [place], [address], 08/28/2022 16:13:08 08/28/19 23 08/28/2022 CBC WITH DIFFE RENTI AL/PL ATELE T eos 2 % not estab. Not Available [facility] ([facility]) [address] [facility], [place], [address], 08/28/2022 16:13:08 08/28/19 23 08/28/2022 CBC WITH DIFFE RENTI AL/PL ATELE T basos 1 % not estab. Not Available [facility] ([facility]) [address] [facility], [place], [address], 08/28/2022 16:13:08 08/28/19 23 08/28/2022 CBC WITH DIFFE RENTI AL/PL ATELE T immature cells SHAREPOINT ANALYST Not Available [facility] ([facility]) [address] [facility], [place], [address], 08/28/2022 16:13:08 08/28/19 23 08/28/2022 CBC WITH DIFFE RENTI AL/PL ATELE T neutrophils (absolute) 0.8 x10e3 /uL 1.4-7. 0 below low normal Not Available [facility] ([facility]) [address] [facility], [place], [address], 08/28/2022 16:13:08 08/28/19 23 08/28/2022 CBC WITH DIFFE RENTI AL/PL ATELE T lymphs (absolute) 1.4 x10e3 /uL 0.7-3. 1 Not Available [facility] ([facility]) [address] [place], [address], 08/28/2022 16:13:08 08/28/19 23 08/28/2022 CBC WITH DIFFE RENTI AL/PL ATELE T monocytes(ab solute) 0.4 x10e3 /uL 0.1-0. 9 Not Available [facility] ([facility]) [address] [place], [address], 08/28/2022 16:13:08 08/28/19 23 08/28/2022 CBC WITH DIFFE RENTI AL/PL ATELE T eos (absolute) 0.1 x10e3 /uL 0.0-0. 4 Not Available [facility] ([facility]) [address] [facility], [place], [address], 08/28/2022 16:13:08 08/28/19 23 08/28/2022 CBC WITH DIFFE RENTI AL/PL ATELE T baso (absolute) 0.0 x10e3 /uL 0.0-0. 2 Not Available [facility] ([facility]) [address] [facility], [place], [address], 08/28/2022 16:13:08 08/28/19 23 08/28/2022 CBC WITH DIFFE RENTI AL/PL ATELE T immature granulocytes 0 % not estab. Not Available [facility] ([facility]) [address] [facility], [place], [address], 08/28/2022 16:13:08 08/28/19 23 08/28/2022 CBC WITH DIFFE RENTI AL/PL ATELE T immature grans (abs) 0.0 x10e3 /uL 0.0-0. 1 Not Available [facility] ([facility]) [address] [facility], [place], [address], 08/28/2022 16:13:08 08/28/19 23 08/28/2022 CBC WITH DIFFE RENTI AL/PL ATELE T NRBC SHAREPOINT ANALYST Not Available [facility] ([facility]) [address] [facility], [place], [address], 08/28/2022 16:13:08 08/28/19 23 08/28/2022 CBC WITH DIFFE RENTI AL/PL ATELE T hematology comments: NOTE: Verif ied by emmanuel wyman n. Not Available [facility] ([facility]) [address] [facility], [place], [address], 08/28/2022 16:13:08 08/28/19 23 08/28/2022 COMP. METAB OLIC PANEL (14) glucose 93 mg/dL 70-99 Not Available [facility] ([facility]) [address] [facility], [place], [address], 08/28/2022 16:13:10 08/28/19 23 08/28/2022 COMP. METAB OLIC PANEL (14) BUN 15 mg/dL 6-24 Not Available [facility] ([facility]) [address] [place], [address], 08/28/2022 16:13:10 08/28/19 23 08/28/2022 COMP. METAB OLIC PANEL (14) creatinine 0.84 mg/dL 0.76-1 .27 Not Available [facility] ([facility]) [address] [place], [address], 08/28/2022 16:13:10 08/28/19 23 08/28/2022 COMP. METAB OLIC PANEL (14) eGFR 106 mL/mi n/1.7 3 >59 Not Available [facility] ([facility]) [address] [place], [address], 08/28/2022 16:13:10 08/28/19 23 08/28/2022 COMP. METAB OLIC PANEL (14) BUN/creatini ne ratio 18 9-20 Not Available [facility] ([facility]) [address] [place], [address], 08/28/2022 16:13:10 08/28/19 23 08/28/2022 COMP. METAB OLIC PANEL (14) sodium 140 mmol/ L 134-14 4 Not Available [facility] ([facility]) [address] [place], [address], 08/28/2022 16:13:10 08/28/19 23 08/28/2022 COMP. METAB OLIC PANEL (14) potassium 4.1 mmol/ L 3.5-5. 2 Not Available [facility] ([facility]) [address] [place], [address], 08/28/2022 16:13:10 08/28/19 23 08/28/2022 COMP. METAB OLIC PANEL (14) chloride 103 mmol/ L 96-106 Not Available [facility] ([facility]) [address] [place], [address], 08/28/2022 16:13:10 08/28/19 23 08/28/2022 COMP. METAB OLIC PANEL (14) carbon dioxide, total 25 mmol/ L Not Available [facility] ([facility]) [address], [place], [address], 08/28/2022 16:13:10 08/28/19 23 08/28/2022 COMP. METAB OLIC PANEL (14) calcium 9.5 mg/dL 8.7-10 .2 Not Available [facility] ([facility]) [address], [place], [address], 08/28/2022 16:13:10 08/28/19 23 08/28/2022 COMP. METAB OLIC PANEL (14) protein, total 6.9 g/dL 6.0-8. 5 Not Available [facility] ([facility]) [address], [place], [address], 08/28/2022 16:13:10 08/28/19 23 08/28/2022 COMP. METAB OLIC PANEL (14) albumin 4.5 g/dL 3.8-4. 9 Not Available [facility] ([facility]) [address], [place], [address], 08/28/2022 16:13:10 08/28/19 23 08/28/2022 COMP. METAB OLIC PANEL (14) globulin, total 2.4 g/dL 1.5-4. 5 Not Available [facility] ([facility]) [address] [place], [address], 08/28/2022 16:13:10 08/28/19 23 08/28/2022 COMP. METAB OLIC PANEL (14) A/G ratio 1.9 1.2-2. 2 Not Available [facility] ([facility]) [address] [place], [address], 08/28/2022 16:13:10 08/28/19 23 08/28/2022 COMP. METAB OLIC PANEL (14) bilirubin, total 0.4 mg/dL 0.0-1. 2 Not Available [facility] ([facility]) [address] [place], [address], 08/28/2022 16:13:10 08/28/19 23 08/28/2022 COMP. METAB OLIC PANEL (14) alkaline phosphatase 57 IU/L 44-121 Not Available [facility] ([facility]) [address] [place], [address], 08/28/2022 16:13:10 08/28/19 23 08/28/2022 COMP. METAB OLIC PANEL (14) AST (SGOT) 15 IU/L 0-40 Not Available [facility] ([facility]) [address] [place], [address], 08/28/2022 16:13:10 08/28/19 23 08/28/2022 COMP. METAB OLIC PANEL (14) ALT (SGPT) 15 IU/L 0-44 Not Available [facility] ([facility]) [address] [place], [address], 08/28/2022 16:13:10 08/28/19 23 08/28/2022 LIPID PANEL cholesterol, total 187 mg/dL 100-19 9 Not Available [facility] ([facility]) [address] [place], [address], 08/28/2022 16:13:10 08/28/19 23 08/28/2022 LIPID PANEL triglyceride s 47 mg/dL 0-149 Not Available [facility] ([facility]) [address] [place], [address], 08/28/2022 16:13:10 08/28/19 23 08/28/2022 LIPID PANEL HDL cholesterol 76 mg/dL >39 Not Available [facility] ([facility]) [address] [facility], [place], [address], 08/28/2022 16:13:10 08/28/19 23 08/28/2022 LIPID PANEL VLDL cholesterol ramiro 9 mg/dL 5-40 Not Available [facility] ([facility]) [address] [facility], [place], [address], 08/28/2022 16:13:10 08/28/19 23 08/28/2022 LIPID PANEL LDL chol calc ([facility]) 102 mg/dL 0-99 above high normal Not Available [facility] ([facility]) [address] [facility], [place], [address], 08/28/2022 16:13:10 08/28/19 23 08/28/2022 LIPID PANEL comment: SHAREPOINT ANALYST Not Available [facility] ([facility]) [address] [facility], [place], [address], 08/28/2022 16:13:10 08/28/19 23 08/28/2022 VITAM IN D, 25-HY DROXY vitamin D, 25-hydroxy 65.0 NG/mL 30.0-1 00.0 Vitam in D defic iency has been defin ed by the Insti tute of Medic ine and an Endoc rine Socie ty pract ice guide line as a level of serum 25-OH vitam in D less than 20 ng/mL (1,2) . The Endoc rine Socie ty went on to furth er defin e vitam in D insuf ficie ncy as a level betwe en 21 and 29 ng/mL (2). 1. IOM (Inst itute of Medic ine). 2010. Dieta ry refer ence jos es for calci um and D. Nilson pérez [place]: The Natio nal [facility] Press . 2. Roger wolf MF, Tania villa [place], Bhumika off-F errar i GUIDRY, et al. Evalu ation , treat ment, and preve ntion of vitam in D defic iency : an Endoc rine Socie ty clini ramiro pract ice guide line. JCEM. 2011 Kwan; 96(7) :1911 -30. Not Available [facility] ([facility]) [address] [facility], [place], [address], 08/28/2022 16:13:11 08/28/19 23 08/28/2022 TSH TSH 1.100 uIU/m L 0.450- 4.500 Not Available Not Available 08/28/2022 16:13:12 08/28/19 23 08/28/2022 HEMOG LOBIN A1C hemoglobin A1C 5.5 % 4.8-5. 6 Predi abete s: 5.7 - 6.4 Diabe dali: >6.4 Glyce nohemi contr ol for adult s with diabe dali: <7.0 Not Available [facility] ([facility]) [address] [facility], [place], [address], 08/28/2022 16:13:12 08/28/19 23 08/28/2022 PROST ATE-S PECIF IC AG prostate specific Ag 0.8 NG/mL 0.0-4. 0 Neena ECLIA metho dolog y. Accor ding to the Ameri can Urolo gical Assoc iatio n, Serum PSA shoul d decre ase and remai n at undet ectab le level s after radic al prost atect imelda. The AUA defin es bioch emica l recur rence as an initi al PSA value 0.2 ng/mL or great er follo wed by a subse quent confi rmato ry PSA value 0.2 ng/mL or great er. Value s obtai bonny with diffe rent assay metho ds or kits canno t be used inter mares eably . Resul ts canno t be inter prete d as absol [place] evide nce of the prese nce or absen ce of [place] se. Not Available Not Available 08/28/2022 16:13:13 08/28/1908/28/2022 SEDIM ENTAT ION RATE- WESTE RGREN sedimentatio n rate-westerg heaven 2 mm/HR 0-30 Not Available [facility] ([facility]) [address] [facility] [place], [address], 08/28/2022 16:13:14 08/28/19 23 08/28/2022 C-WILI CTIVE PROTE IN, QUANT C-reactive protein, quant <1 mg/L 0-10 Not Available Not Available 08/18 16:13:14 08/28/19 23 08/28/2022 VITAM IN B12 vitamin B12 707 pg/mL 232-12 45 Not Available [facility] ([facility]) [address] [facility], [place], [address], 08/28/2022 16:13:15 10/03/19 23 10/03/2022 TSH+F REE T4 TSH 0.460 uIU/m L 0.450- 4.500 Not Available [facility] ([facility]) [address] [place], [address], 10/03/2022 16:12:23 10/03/19 23 10/03/2022 TSH+F REE T4 T4,free(dire ct) 1.43 NG/dL 0.82-1 .77 Not Available [facility] ([facility]) [address] [facility], [place], [address], 10/03/2022 16:12:23 10/03/19 23 10/03/2022 CBC WITH DIFFE RENTI AL/PL ATELE T WBC 2.7 x10e3 /uL 3.4-10 .8 below low normal Not Available [facility] ([facility]) [address] [place], [address], 10/03/2022 16:12:24 10/03/19 23 10/03/2022 CBC WITH DIFFE RENTI AL/PL ATELE T RBC 4.98 x10e6 /uL 4.14-5 .80 Not Available [facility] ([facility]) [address] [facility], [place], [address], 10/03/2022 16:12:24 10/03/19 23 10/03/2022 CBC WITH DIFFE RENTI AL/PL ATELE T hemoglobin 13.3 g/dL 13.0-1 7.7 Not Available [facility] ([facility]) [address] [place], [address], 10/03/2022 16:12:24 10/03/19 23 10/03/2022 CBC WITH DIFFE RENTI AL/PL ATELE T hematocrit 41.1 % 37.5-5 1.0 Not Available [facility] ([facility]) [address] [facility], [place], [address], 10/03/2022 16:12:24 10/03/19 23 10/03/2022 CBC WITH DIFFE RENTI AL/PL ATELE T MCV 83 fL 79-97 Not Available [facility] ([facility]) [address] [place], [address], 10/03/2022 16:12:24 10/03/19 23 10/03/2022 CBC WITH DIFFE RENTI AL/PL ATELE T MCH 26.7 pg 26.6-3 3.0 Not Available [facility] ([facility]) [address] [place], [address], 10/03/2022 16:12:24 10/03/19 23 10/03/2022 CBC WITH DIFFE RENTI AL/PL ATELE T MCHC 32.4 g/dL 31.5-3 5.7 Not Available [facility] ([facility]) [address] [place], [address], 10/03/2022 16:12:24 10/03/19 23 10/03/2022 CBC WITH DIFFE RENTI AL/PL ATELE T RDW 13.1 % 11.6-1 5.4 Not Available [facility] ([facility]) [address] [place], [address], 10/03/2022 16:12:24 10/03/19 23 10/03/2022 CBC WITH DIFFE RENTI AL/PL ATELE T platelets 244 x10e3 /uL 150-45 0 Not Available [facility] ([facility]) [address] [place], [address], 10/03/2022 16:12:24 10/03/19 23 10/03/2022 CBC WITH DIFFE RENTI AL/PL ATELE T neutrophils 28 % not estab. Not Available [facility] ([facility]) [address] [facility], [place], [address], 10/03/2022 16:12:24 10/03/19 23 10/03/2022 CBC WITH DIFFE RENTI AL/PL ATELE T lymphs 58 % not estab. Not Available [facility] ([facility]) [address] [place], [address], 10/03/2022 16:12:24 10/03/19 23 10/03/2022 CBC WITH DIFFE RENTI AL/PL ATELE T monocytes 13 % not estab. Not Available [facility] ([facility]) [address] [place], [address], 10/03/2022 16:12:24 10/03/19 23 10/03/2022 CBC WITH DIFFE RENTI AL/PL ATELE T eos 1 % not estab. Not Available [facility] ([facility]) [address] [place], [address], 10/03/2022 16:12:24 10/03/19 23 10/03/2022 CBC WITH DIFFE RENTI AL/PL ATELE T basos 0 % not estab. Not Available [facility] ([facility]) [address] [place], [address], 10/03/2022 16:12:24 10/03/19 23 10/03/2022 CBC WITH DIFFE RENTI AL/PL ATELE T immature cells SHAREPOINT ANALYST Not Available [facility] ([facility]) [address] [place], [address], 10/03/2022 16:12:24 10/03/19 23 10/03/2022 CBC WITH DIFFE RENTI AL/PL ATELE T neutrophils (absolute) 0.8 x10e3 /uL 1.4-7. 0 below low normal Not Available [facility] ([facility]) [address] [facility], [place], [address], 10/03/2022 16:12:24 10/03/19 23 10/03/2022 CBC WITH DIFFE RENTI AL/PL ATELE T lymphs (absolute) 1.5 x10e3 /uL 0.7-3. 1 Not Available [facility] ([facility]) [address] [facility], [place], [address], 10/03/2022 16:12:24 10/03/19 23 10/03/2022 CBC WITH DIFFE RENTI AL/PL ATELE T monocytes(ab solute) 0.3 x10e3 /uL 0.1-0. 9 Not Available [facility] ([facility]) [address] [facility], [place], [address], 10/03/2022 16:12:24 10/03/19 23 10/03/2022 CBC WITH DIFFE RENTI AL/PL ATELE T eos (absolute) 0.0 x10e3 /uL 0.0-0. 4 Not Available [facility] ([facility]) [address] [facility], [place], [address], 10/03/2022 16:12:24 10/03/19 23 10/03/2022 CBC WITH DIFFE RENTI AL/PL ATELE T baso (absolute) 0.0 x10e3 /uL 0.0-0. 2 Not Available [facility] ([facility]) [address] [facility], [place], [address], 10/03/2022 16:12:24 10/03/19 23 10/03/2022 CBC WITH DIFFE RENTI AL/PL ATELE T immature granulocytes 0 % not estab. Not Available [facility] ([facility]) [address] [facility], [place], [address], 10/03/2022 16:12:24 10/03/19 23 10/03/2022 CBC WITH DIFFE RENTI AL/PL ATELE T immature grans (abs) 0.0 x10e3 /uL 0.0-0. 1 Not Available [facility] ([facility]) [address] [facility], [place], [address], 10/03/2022 16:12:24 10/03/19 23 10/03/2022 CBC WITH DIFFE RENTI AL/PL ATELE T NRBC SHAREPOINT ANALYST Not Available [facility] ([facility]) [address] [facility], [place], [address], 10/03/2022 16:12:24 10/03/19 23 10/03/2022 CBC WITH DIFFE RENTI AL/PL ATELE T hematology comments: NOTE: Verif ied by emmanuel lucioi zamzam n. Not Available [facility] ([facility]) [address] [facility], [place], [address], 10/03/2022 16:12:24 10/03/19 23 10/03/2022 THYRO GLOBU ANGELA ANTIB JUANIS thyroglobuli n antibody <1.0 IU/mL 0.0-0. 9 Thyro globu angela Antib juanis measu red by Rk Mccannt er Metho dolog y Not Available [facility] ([facility]) [address] [facility], [place], [address], 10/03/2022 16:12:25 10/03/1910/03/2022 THYRO ID PEROX IDASE (TPO) AB thyroid peroxidase (tpo) Ab <9 IU/mL 0-34 Not Available [facility] ([facility]) [address] [facility], [place], [address], 10/03/2022 16:12:25 05/20/19 22 XR, foot No observ ation record ed. [id number] [facility] [place] [address], [place], [address], 06/19/2022 00:39:04 06/10/19 22 06/12/2021 elect rocar diogr am No observ ation record ed. [id number] _[facility]_[address] , [place], [address], 06/19/2022 00:39:04 06/11/19 22 06/10/2021 elect rocar diogr am No observ ation record ed. [id number] _[facility]_[address] , [place], [address], 06/19/2022 00:39:04 09/02/19 23 09/01/2022 US, head + neck, soft tissu e [facility] [address] [place] [address] Patien t Name: CINDI STAPLES ion #: [id number] Sex: M : 1970 5 7 Locati on: RAD Attend ing Physic rosa: SARA DE ANDA Orderi Physic rosa: SARA DE ANDA Exam Date: 023 6:15 PM Exam Name: US NECK HEAD SOFT TISSUE Admitt ing Diagno sis(es ): RADIOL OGY REPORT - FINAL EXAM: US NECK HEAD SOFT TISSUE HISTOR Y: Goiter COMPAR RIOS: None. TECHNI QUE: Ultras ound evalua tion of the thyroi d gland was perfor med. FINDIN GS: Right thyroi d lobe: The right lobe of the thyroi d gland measur es 5.4 x 1.6 x 2.4 cm. The thyroi d parenc hyma is homoge neous withou t solid nodule s or cystic lesion s. No abnorm al color Dopple r blood flow or suspic ious calcif icatio ns. Left thyroi d lobe: The left lobe of the thyroi d gland measur es 5.7 x 1.5 x 1.7 cm. The thyroi d parenc hyma is homoge neous withou t solid nodule s or cystic Page 1 of 2 [facility] Patien t Name: CINDI STAPLES Access ion #: [id number] Sex: M : 1970 5 7 Exam Date: 6:15 PM Exam Name: US NECK HEAD SOFT TISSUE Admitt ing Diagno sis(es ): lesion s. No abnorm al color Dopple r blood flow or suspic ious calcif icatio ns. Isthmu s: The thyroi d isthmu s measur es 0.62 mm in width. The thyroi d parenc hyma is homoge neous withou t solid nodule s or cystic lesion s. No abnorm al color Dopple r blood flow or suspic ious calcif icatio ns. IMPRES SEE: Enlarg ed thyroi d gland, no nodule s, no recomm endati ons for ultras ound follow -up. Create d and electr onical ly signed by: Rolando blanchard MD Signed Date: 6:32 PM (CT) Dictat ed by: Rolando blanchard MD DD: 6:32 PM (CT) DT: 6:32 PM (CT) Page [address] (Imaging) [address] [place], [address], 10/17/2022 11:04:39 09/07/19 23 09/04/2022 CT, chest + abdom en + pelvi s, w/ contr ast [facility] [address] [place] [address] Patien t Name: CINDI STAPLES Access ion #: [id number] Sex: M : 1970 5 3 Locati on: RAD Attend ing Physic rosa: SARA DE ANDA Orderi ng Physic rosa: SARA DE ANDA Exam Date: 023 4:30 PM Exam Name: CT CHEST ABDOME N PELVIS W Admitt ing Diagno sis(es ): RADIOL OGY REPORT - FINAL EXAM: CT CHEST ABDOME N PELVIS W HISTOR Y: abnorm al weight loss COMPAR RIOS: None. TECHNI QUE: The chest, abdome n, and pelvis are evalua ministerio with intrav enous contra st. Axial images are recons tructe d in the acosta l, sagitt al, and axial planes and are review ed with medias tinal lung window s settin gs. This CT exam was perfor med using one or more of the follow ing dose reduct ion techni ques: Automa ministerio exposu re contro l, adjust ment of the mA and/or kV accord ing MPForm atto patien t size, or use of iterat shadia recons tructi on techni que. Dose: 100 ML Isovue 300 intrav enous Page 1 of 4 [facility] Pati t Name: CINDI STAPLES Access ion #: [id number] Sex: M : 1970 5 3 Exam Date: 023 4:30 PM Exam Name: CT CHEST ABDOME N PELVIS W Admitt ing Diagno sis(es ): Oral contra st:30 mL Gastro view FINDIN GS: CT chest with: Thyroi d: Unrema rkable Heart: Normal size, no perica rdial effusi on. Vascul ar struct ures: No acute proces s Pleura l space: Unrema rkable Lungs: Unrema rkable Medias tinum: Mild tissue densit y is noted anteri stacia within the medias tinum at the expect ed locati on of the thymus , the appear ance may relate to residu al thymus . Consid er thorac ic surgic al referr al. Osseou s struct ures: Mild multil evel degene rative change s. Extrat horaci c soft tissue s: Unrema rkable CT ABDOME N: Liver: Unrema rkable Page 2 of 4 [facility] t Name: CINDI STAPLES Access ion #: [id number] Sex: M : 1970 5 3 Exam Date: 023 4:30 PM Exam Name: CT CHEST ABDOME N PELVIS W Admitt ing Diagno sis(es ): Gallbl adder and biliar y system : Unrema rkable Spleen : Normal size Pancre as: No mass Adrena l glands : Unrema rkable bilate rally Kidney s and ureter s: Image [id number] demons trates a 10 mm simple cyst of the superi or pole of the left kidney . Append ix: No CT eviden ce of append icitis . Stomac h and bowel: Consid erable volume of stool throug hout the large colon consid er consti pation . Perito mandeep cavity : No free air or ascite s. Retrop eriton eum-me beni y, there are multip le small mesent catrachita lymph nodes measur ing less than 8 mm, consid er histor y of mesent catrachita adenit is the appear ance is nonspe cific. Lymph nodes: See above Vascul ature: No aneury sm Osseou s struct ures: No acute proces s Extra abdomi nal soft tissue s: Mild strand ing within the subcut aneous fat Page 3 of 4 [facility] t Name: CINDI STAPLES Access ion #: [id number] Sex: M : 1970 5 3 Exam Date: 023 4:30 PM Exam Name: CT CHEST ABDOME N PELVIS W Admitt ing Diagno sis(es ): CT PELVIS : Reprod uctive : Signif icant prosta tic enlarg ement Rectos igmoid : Mild thicke bonny appear ance of mucosa of the rectos igmoid which may relate to lack of disten tion, direct visual izatio n may prove benefi cial given the histor y Bladde r and distal ureter s: Unrema rkable Extra pelvic soft tissue s: Mild strand ing, subcen timete r subcut aneous lymph nodes. IMPRES SEE: 1. CT Chest: See above. 2. CT ABDOME N AND PELVIS : See above. Create d and electr onical ly signed by: Rolando blanchard MD Signed Date: 11:47 AM (CT) Dictat ed by: Rolando blanchard MD DD: 11:47 AM (CT) DT: 11:47 AM (CT) Page 4 of 4 [email or web address] [facility] (Imaging) [address] [place], [address], 10/17/2022 11:04:39 Result Notes None recorded. Problems Name Problem SNOMED Code Status Onset Date Resolution Date Notes Provider Name and Address Organization Details Recorded Time Bunion 768551030 Active 2021 Not Available [facility] 3 00:36:46 Foot pain 59056848 Active 2021 Not Available [facility] 3 00:36:46 Weight loss 78258336 Active 2022 Destinee Gallagher MD [address], [place], [address] , [employer] [facility] 3 08:46:05 Night sweats 84262510 Active 2022 Destinee Gallagher MD [address], [address], [place], [address] , [employer] [facility] 3 08:46:17 Goiter 0087055 Active 2022 Destinee Gallagher MD [address], [place], [address] , [employer] [facility] 3 09:02:28 Mediastinal mass 04743665 Active 2022 Destinee Gallagher MD [address], [place], [address] , [employer] [facility] 3 13:45:21 Large prostate 237752118 Active 2022 Destinee Gallagher MD [address], [place], [address] , [facility] 16:53:39 Leukopenia 65260943 Active 2022 Destinee Gallagher MD [address], [place], [address] , [facility] 17:09:10 Problem Notes None recorded. Procedures Surgical History None recorded. Imaging Results Imaging Date Name Status LastModified by Organization Details LastModified Time 05/20/2021 XR, foot completed [id number].[id number] [facility] Podiatry [address], [place], [address], 06/19/2022 00:39:04 06/12/2021 electrocardiogram completed MIGRATION. [id number] [facility] [address] , [place], [address], 06/19/2022 00:39:04 06/10/2021 electrocardiogram completed MIGRATION. 80675 [id number] [facility] , [place], [address], 06/19/2022 00:39:04 09/01/2022 US, head + neck, soft tissue completed [address] (Imaging) [address] [place], [address], 10/17/2022 11:04:39 09/04/2022 CT, chest + abdomen + pelvis, w/ contrast completed [address] (Imaging) [address] [place], [address], 10/17/2022 11:04:39 Procedure Notes None recorded. Medical Equipment None Reported. Allergies Allergen ID Allergen Name Allergen Category Reaction Reaction Severity Criticality Documentation Date Start Date Code Code System Note Provider Name and Address Organization Details Recorded Time 61556 Product containin g penicilli n (product) medicatio n anaphylax is severe Not available 06/19/2022 84338 8001 SNOMED Not Available [facility] 3 00:38:47 Medications Name Sig Start Date Stop Date Status Note LastModified by Organization Details LastModified Time GaviLyte- G 236 gram-22.7 4 gram-6.74 gram-5.86 gram oral solution DIRECTED active Not Available Not Available Not Available Paxlovid 300 mg (150 mg x 2)-100 mg tablets in a dose pack TAKE 2 TABLETS OF NIRMATRELVI R WITH 1 TABLET OF RITONAVIR TOGETHER BY MOUTH TWICE DAILY FOR 5 DAYS 08/28 completed Not Available Not Available Not Available Vitals Date Recorded Body mass index (BMI) Body height Body weight Provider Name and Address Organization Details Last Updated DateTime 05/20/2021 29.5 kg/m2 175.26 cm 01604.47 g Not Available [facility] 06/19/2022 00:36:27 Date Recorded Body mass index (BMI) Body height Oxygen saturation Oxygen saturation in Arterial blood by Pulse oximetry Heart rate Body temperature Body weight Systolic blood pressure Diastolic blood pressure Provider Name and Address Organization Details Last Updated DateTime 2 29.7 kg/m2 175.26 cm 75 % 75 % 75 /min 98.3 [degF] 86154.0 7 g 114 mm[Hg] 70 mm[Hg] Not Available [facility] 3 00:36:27 Date Recorded Body mass index (BMI) Body height Oxygen saturation Oxygen saturation in Arterial blood by Pulse oximetry Heart rate Body temperature Body weight Provider Name and Address Organization Details Last Updated DateTime 2 28.5 kg/m2 175.26 cm 99 % 99 % 71 /min 97.2 [degF] 48310.3 3 g Not Available [facility] 3 00:36:27 Date Recorded Body weight Body temperature Heart rate Oxygen saturation Oxygen saturation in Arterial blood by Pulse oximetry Systolic blood pressure Diastolic blood pressure Provider Name and Address Organization Details Last Updated DateTime 3 01105.1 5 g 95.4 [degF] 74 /min 97 % 97 % 118 mm[Hg] 72 mm[Hg] Rush Rock RN [place] [employer] [facility] 3 08:16:02 Date Recorded Body weight Body temperature Heart rate Oxygen saturation Oxygen saturation in Arterial blood by Pulse oximetry Systolic blood pressure Diastolic blood pressure Provider Name and Address Organization Details Last Updated DateTime 3 81587.3 g 98.6 [degF] 71 /min 97 % 97 % 118 mm[Hg] 72 mm[Hg] Rush Rock RN [place] [facility] [employer] 3 16:46:44 Social History Question Answer Notes LastModified by Organizat ion Details LastModified Time Tobacco Smoking Status Current Some Day Smoker cigar, 1 or 2 per week Not Available [employer] 06/19/2022 00:34:41 Do You Have An Advance Directive? No [id number].[id number] Information not available 06/19/2022 What Is Your Level Of Alcohol Consumption? Occasional MIGRATION.57615 75916 Information not available 06/19/2022 What Is Your Level Of Caffeine Consumption? Occasional MIGRATION.30034 93217 Information not available 06/19/2022 How Much Tobacco Do You Chew? None MIGRATION.41302 14394 Information not available 06/19/2022 In The 14 Days Before Symptom Onset, Have You Had Close Contact With A Laboratory-confir med COVID-19 While That Case Was Ill? No MIGRATION.78794 35517 Information not available 06/19/2022 In The 14 Days Before Symptom Onset, Have You Had Close Contact With A Person Who Is Under Investigation For COVID-19 While That Person Was Ill? No MIGRATION.36701 52220 Information not available 06/19/2022 What Type Of Diet Are You Following? REGULAR MIGRATION.65114 45177 Information not available 06/19/2022 Which Illicit Or Recreational Drugs Have You Used? Marijuana, Occasionally MIGRATION.85296 97543 Information not available 06/19/2022 What Was The Date Of Your Most Recent Tobacco Screening? 08/27/2022 [email or web address] Information not available 08/27/2022 Have You Ever Been Counseled For Unhealthy Alcohol Use? No MIGRATION.04307 32315 Information not available 06/19/2022 What Is Your Relationship Status? MIGRATION.42608 11161 Information not available 06/19/2022 How Much Tobacco Do You Smoke? No MIGRATION.09898 82803 Information not available 06/19/2022 Do You Use Any Illicit Or Recreational Drugs? Yes MIGRATION.15113 82731 Information not available 06/19/2022 Has Tobacco Cessation Counseling Been Provided? No MIGRATION.28804 03694 Information not available 06/19/2022 Have You Recently Traveled Abroad? No MIGRATION.45117 19166 Information not available 06/19/2022 Have You Used IV Drugs? No MIGRATION.27151 63752 Information not available 06/19/2022 Do You Or Have You Ever Used Any Other Forms Of Tobacco Or Nicotine? Yes MIGRATION.18713 31025 Information not available 06/19/2022 Sex: Male Functional Status Question Answer Note LastModified by Organizat ion Details LastModified Time What is your exercise level? Occasional [id number].[id number] 26 Information not available 06/19/2022 Mental Status None recorded. Family History Relationship Description Onset Age of this Age Resolved Age Notes LastModified by Organization Details LastModified Time Mother Disorder of thyroid gland MIGRATION.956 [id number] Not available 06/19/2022 00:34:49 Mother Neck pain [email or web address] Not availabl e 08/27/2022 08:11:00 Mother Osteoporosis [email or web address] Not avail able 08/27/2022 08:11:00 Mother Essential hypertension [email or web address] Not available 01/2023 08:11:00 Father Substance abuse MIGRATION.449 [id number] Not available 06/19/2022 00:34:49 Father Myocardial infarction 45 ? cocain e relate d MIGRATION.192 [id number] Not available 06/19/2022 00:34:49 Paternal Grandmother Dementia [email or web address] Not available 08/18 08:11:00 Maternal Grandfather Diabetes mellitus MIGRATION.717 [id number] Not available 06/19/2022 00:34:49 Father Cerebrovascu lar accident [email or web address] Not available 01/2023 08:45:47 Medical History Condition Response ARTHRITIS Y ALLERGIES/HAYFEVER Y BACK / NECK PROBLEMS Y Immunizations Vaccine Type Date Status Note Provider Nam e and Address Organization Details Recorded Time Influenza, split virus, trivalent, preservative completed Not Available [facility] 06/19/2022 00:38:43 Past Encounters Encounter ID Performer Location Encounter Start Date Encounter Closed Date Diagnosis/Indication Diagnosis SNOMED-CT Code Diagnosis ICD10 Code Diagnosis Note [id number] [facility] Rafa Luu [address] [place] [address] 05/20/2021 00:00:00 05/20/2021 18:04:03 [id number] [facility] Primary Care [place] [address] [facility] [address] [id number] 06/10/2021 00:00:00 06/16/2021 22:36:27 [id number] _ATHENA_M IGRATION_ DEFAULT_1 _1 , 07/31/2021 00:00:00 07/31/2021 16:35:09 [id number] Destinee Gallagher MD [facility] Primary Care [place] [address] [facility] [address] [place] [id number] 08/27/2022 08:08:24 08/27/2022 09:16:32 Adult health examination 158162656 Z00.00 Z13.220 Z13.1 Z12.5 Colonoscop y normal 2021 repeat 2022recomm end yearly flu vaccine and covid vaccines per cdc guidelines recommend shingrix vaccine serieschec k labs Weight loss 35077048 R63 .4 R61 E55.9 R25.2 persistent soaking night sweats and substantia l weight losslabs orderedcon cerning for malignancy , colonoscop y is up to dateCT chest/abd/ pelvis ordered Goiter 1759931 E04.9 noted on examTSH orderedwil l get [place] [id number] Destinee Gallagher MD [facility] Primary Care [place] [address] [address] [facility] [address] [id number] 10/01/2022 16:41:51 10/01/2022 17:36:20 Large prostate 520105465 N40.0 Leukopenia 72345915 D72. 819 Health Concerns Section Related Observation LastModified by Organization Detai ls LastModified Time None Recorded Concern Status LastModified by Organization Details LastModified Time None Recorded Advance Directives Directive N: Payers Encounter Date Sequence Insurance Name Policy Number Policy Russo Covered Member ID Russo Member ID Guarantor Name 08/27/2022 1 [employer] - CHOICE (POS II) [id number] Cindi Staples [id number] Cindi Staples 10/01/2022 1 [employer] - CHOICE (POS II) [id number] Cindi Staples [id number] Cindi Staples Notes Date Note Type Note Provider Name and Address Organization Details Recorded Time 08/27/2022 text/html Here for annual physical and notes that he is having soaking night sweats again. They seemed to occur more before the weather changed -was occuring 5 out of 7 days, now not as frequent but still happening. He has not been able to pin down a trigger. He has to get up and change his clothes and/or sheets when it happens. He has not tried to lose weight but he has made some intentional changes to how he approaches food. He fasts one day per week, cut out soda, no cream/sugar in coffee, no snacking. He has good appetite. He generally had a healthy lifestyle prior to this so he does think his weight loss is out of proportion to the changes he has made and friends and family have commented about the amount of weight he has lost. He is a [employer] secretary, he uses a standing desk, tries to avoid sitting too much through the day. He does go back and forth between buildings. This has been a change in his work life in the past 2 years. He normally sleeps on his left side and about a month ago he woke up and was changing positions and had sharp and localized intense pain, sometimes not able to find the source of the pain when he tries to touch it. No fatigue, no change in exercise endurance, no chest pain, no sob. No vomiting, over the past several years he will have occ out of the blue nausea that can last a seconds to minutes At times feels bladder is full, feels like he empties his bladder but then has to go to urinate again quickly. No nocturia. Some hesitancy, no split stream, no excessive dribbling. No c/d, had colonoscopy 2021. No edema, no numbness/tingling, no pins/needs Destinee Gallagher MD [address] [place] [address], [facility] [address], [place], [address], [facility] [employer] 08/28/2022 18:14:15 10/01/2022 text/html night sweats a b it betternotices his urinary symptoms but not bothersomeno nocturia does not feel constipated Destinee Gallagher MD [address] [facility], [facility] [address], [place], [address], [place] [facility] 10/17/2022 11:05:39
[2024-06-30 13:24] LABS: Troponin I < 0.012 ng/mL (0.000-0.034)
--- OUTSIDE RECORDS SUMMARY | 2024-06-30 13:52 | XMS_ITS | Clinical Summary ---
Author Organization [facility] Address [address] [place] [address] Care Team Providers Care Head Pastry Chef Name Role Phone Unavailable Primary Care Provider Unavailabl e Social History Tobacco Use Types Packs/Day Years Used Date Smoking Tobacco: Never Assessed Sex and Gender Information Value Date Recorded Sex Assigned at Not on file Legal Sex Male 11:01 AM [employer] Gender Identity Not on file Sexual Orientation [...]
--- OUTSIDE RECORDS SUMMARY | 2024-06-30 13:52 | XMS_ITS | Encounter Summary ---
Author Organization [facility] Address [address] [place] [address] Care Team Providers Care Jail Keeper Name Role Phone Poli Cochran DO Primary Care Provider [phone] Encounter Details Date Type Department Care Team (Late st Contact Info) Description 10/15/2011 [facility] Visit [facility]NAL [facility] DEPT Poli Cochran DO [address] [place] [address] Social History Tobacco Use Types Packs/Day Years [...] on filedocumented in this encounter Care Teams Jail Keeper Relationship Specialty Start Date End Date Poli Cochran DO [address] [place] [address] PCP - General 05/17/09 documented as of this encounter
--- OUTSIDE RECORDS SUMMARY | 2024-06-30 13:53 | XMS_ITS | Patient Health Summary ---
Author Organization [facility] Address [address] [place] [address] Care Team Providers Care Manager Image Name Role Phone CochranChanoPoli Primary Care Provider [phone] Note from [facility],non-owned Affiliates and Associated Physician Practices is amultiple site organization consisting of ambulatory clinics and hospital sitesin [place], [place], [place] and [place]. This disclosure is being madepursuant to the Care Everywhere program and may not contain all information available regarding this patient. Last updated 18.[facility] [place] Allergies * Penicillins Medications * Be aware [...] Comments Blood Pressure 118/75 2021 7:41 AM CONTENT DIRECTOR Pulse 69 2021 7:41 AM CONTENT DIRECTOR Temperature 36.6 C (97.9 F) 05/02/2020 7:34 AM CONTENT DIRECTOR Respiratory Rate 16 2021 7:41 AM CONTENT DIRECTOR Oxygen Saturation 99% 05/02/2020 7:34 AM CONTENT DIRECTOR Inhaled Oxygen Concentration - - Weight 94.3 kg (208 lb) 2021 7:41 AM CONTENT DIRECTOR Height 172.7 cm (5' 8 ) 2021 7:41 AM CONTENT DIRECTOR Body Mass Index 31.63 2021 7:41 AM CONTENT DIRECTOR Procedures * TSH REFLEX FREE T4(Performed 2021) [...] TSH REFLEX FREE T4 (2021 8:19 AM CONTENT DIRECTOR) Pathologist [facility] TSH 0.909 0.350 - 4.940 uIU/mL [facility] ACCOUNT BILL Comment: FASTING Blood BLOOD SPECIMEN / Unknown 2021 8:19 AM CONTENT DIRECTOR 2021 Narrative Resulting Agency Comment Lab Testing performed at: [address] [place] [id number] Poli Cochran DO LAB - CHEMISTRY DUTCH LAMB [facility] ACCOUNT BILL [address] [place] [address] * (ABNORMAL) CBC WITH DIFFERENTIAL (2021 8:19 AM CONTENT DIRECTOR) Only the most recent of6 resultswithin the time period is included. Pathologist [facility] WBC 3.2(L) 4.4 - 10.7 x10E9/L [facility] [...] x10E9/L [facility] ACCOUNT BILL Comment:MPV FL BLOOD ([facility]) 8 .9 fl 9.4-12.9 L Granulocytes [...] BLOOD SPECIMEN / Unknown 2021 8:19 AM CONTENT DIRECTOR 2021 Narrative Resulting Agency Comment Lab Testing performed at: [address] Malik [place] [phone] Poli Cochran DO LAB - HEMATOLOGY ORD ERABLES [facility] ACCOUNT BILL [address] [place] [address] * COMPREHENSIVE METABOLIC PANEL (2021 8:19 AM CONTENT DIRECTOR) Only the most recent of6 resultswithin the [...] BLOOD SPECIMEN / Unknown 2021 8:19 AM CONTENT DIRECTOR 2021 Narrative Resulting Agency Comment Lab Testing performed at: [address] Malik [place] [id number] Poli Cochran DO LAB - CHEMISTRY DUTCH LAMB [facility] ACCOUNT BILL [address] [place] [address] * (ABNORMAL) LIPID PROFILE (2021 8:19 AM CONTENT DIRECTOR) Only the most recent of6 resultswithin the time period is included. Cholesterol 203(H) <200 mg/dL [facility] ACCOUNT BILL Triglycerides 55 <150 mg/dL [facility] ACCOUNT BILL HDL Cholesterol 58 >40 mg/dL [facility] ACCOUNT BILL VLDL Calculated 11 <=30 mg/dL [facility] ACCOUNT BILL LDL Calculated 134(H) <130 mg/dL [facility] ACCOUNT BILL Comment:FASTING Blood BLOOD SPECIMEN / Unknown 2021 8:19 AM CONTENT DIRECTOR 2021 Narrative Resulting Agency Comment Lab Testing performed at: [place] [address] [place] [id number] Poli Cochran DO LAB - CHEMISTRY ORDE ADONIS Performing Organization Address City/[facility]/ZIP Co de Phone Number [facility] ACCOUNT BILL [address] [place] [address] * PROSTATE SPECIFIC ANTIGEN SCREEN (05/02/2020 8:24 AM CONTENT DIRECTOR) Only the most recent of3 resultswithin the time period is included. Pathologist [facility] PSA 0.71 0.00 - 4.00 ng/mL [facility] ACCOUNT BILL Blood BLOOD SPECIMEN / Unknown 05/02/2020 8:24 AM CONTENT DIRECTOR 05/02/2020 Narrative Resulting Agency Comment Lab Testing performed at: [address] [place] [id number] Poli Cochran DO LAB - CHEMISTRY ORDE ADONIS Performing Organization Address [facility] Co de Phone Number [facility] ACCOUNT BILL [address] [place] [address] * TSH (05/02/2020 8:24 AM CONTENT DIRECTOR) Only the most recent of5 resultswithin the time period is included. [facility] TSH 1.8965 0.35 - 4.94 uIU/mL [facility] ACCOUNT BILL Blood BLOOD SPECIMEN / Unknown 05/02/2020 8:24 AM CONTENT DIRECTOR 05/02/2020 Narrative Resulting Agency Comment Lab Testing performed at: [place] [address] [place] [id number] Poli Cochran DO LAB - CHEMISTRY ORDE ADONIS [facility] ACCOUNT BILL [address] [place] [address] * OCCULT BLOOD FECES 1-3 SCREEN POC (AMB) STL (02/26/2018) Occult Blood 1 negative Negative Occult Blood 2 negative Negative Occult Blood 3 negative Negative Card Lot Number [id number] Card Exp Date yes Yes Developer Lot Number [id number] Developer Expiration Date yes Yes QC Negative negative Negative QC Positive negative Stool STOOL SPECIMEN / Unknown 02/26/2018 Poli Cochran DO LAB - POINT OF CARE ORDERABLES * T4 TOTAL (02/24/2017 9:29 AM CONTENT DIRECTOR) T4 Total 8.5 4.7 - 13.3 ug/dL [facility] ACCOUNT BILL Comment:FASTING Blood BLOOD SPECIMEN / Unknown 02/24/2017 9:29 AM CONTENT DIRECTOR 02/24/2017 Narrative Resulting Agency Comment [facility] [address] [place] [id number] Poli Cochran DO LAB - CHEMISTRY DUTCH LAMB [facility] Organization Address City/State/ZIP Co de Phone Number [facility] ACCOUNT BILL [address] [place] [address] * EKG 12-LEAD (02/24/2017) Poli Aguilars DO ECG ORDERABLES * MRI LUMBAR SPINE WO CONTRAST (03/21/2016 3:44 PM CONTENT DIRECTOR) Anatomical Region Laterality Modality Spine Magnetic Resonan ce 03/21/2016 4:03 PM CONTENT DIRECTOR Impressions 03/21/2016 4:28 PM CONTENT DIRECTOR 1. Degenerative disc changes as described. 2. L1-2 mild central stenosis. 3. L3-4 posterior central left paracentral small disc protrusion without stenosis. 4. Other findings as above. Edited by Sofi Perales on 03/21/2016 4:11 PM Narrative 03/21/2016 4:28 PM CONTENT DIRECTOR MRI LUMBAR SPINE WITHOUT CONTRAST CLINICAL INDICATION: [...] 2 OR 3 VW (05/08/2010 6:19 PM CONTENT DIRECTOR) Anatomical Region Laterality Modality Spine Radiographic Nevin ging 05/08/2010 6:28 PM CONTENT DIRECTOR Impressions 05/08/2010 6:28 PM CONTENT DIRECTOR Normal lumbar spine. Narrative 05/08/2010 6:28 PM CONTENT DIRECTOR LUMBAR SPINE 05/08/2010 Indication: Low back pain [...] DO DIAGNOSTIC IMAGING O RDERABLES Care Teams Manager Image Relationship Specialty Start Date End Date Poli Cochran DO [address] [place] [address] PCP - General 05/17/09
--- OUTSIDE RECORDS SUMMARY | 2024-06-30 13:53 | XMS_ITS | Clinical Summary ---
Author Organization [facility] Address [address] [place] [address] Care Team Providers Care Toy Assembler Name Role Phone Poli Cochran DO Primary Care Provider [phone] Source Comments [facility],non-owned Affiliates and Associated Physician Practices is amultiple site organization consisting of ambulatory clinics and hospital sitesin [place], [place], [place] and [place]. This disclosure is being madepursuant to the Care Everywhere program and may not contain all information available regarding this patient. Last updated 18.[facility] Allergies Active Allergy Reactions Criticality Noted [...] Comments Blood Pressure 118/75 2021 7:41 AM TENNIS BALL COVER CEMENTER Pulse 69 2021 7:41 AM TENNIS BALL COVER CEMENTER Temperature 36.6 C (97.9 F) 05/02/2020 7:34 AM TENNIS BALL COVER CEMENTER Respiratory Rate 16 2021 7:41 AM TENNIS BALL COVER CEMENTER Oxygen Saturation 99% 05/02/2020 7:34 AM TENNIS BALL COVER CEMENTER Inhaled Oxygen Concentration - - Weight 94.3 kg (208 lb) 2021 7:41 AM TENNIS BALL COVER CEMENTER Height 172.7 cm (5' 8 ) 2021 7:41 AM TENNIS BALL COVER CEMENTER Body Mass Index 31.63 2021 7:41 AM TENNIS BALL COVER CEMENTER Plan of Treatment Health Maintenance Due Date [...] COMPREHENSIVE METABOLIC PANEL Routine 2021 8:19 AM TENNIS BALL COVER CEMENTER Routine general medical examination at a health care facility LIPID PROFILE Routine 2021 8:19 AM TENNIS BALL COVER CEMENTER Routine general medical examination at a health care facility from Last 3 Months or Most Recently Relevant to Health Maintenance Results * COMPREHENSIVE METABOLIC PANEL (2021 8:19 AM TENNIS BALL COVER CEMENTER) Glucose 101 70 - 105 mg/dL [facility] [...] BLOOD SPECIMEN / Unknown 2021 8:19 AM TENNIS BALL COVER CEMENTER 2021 Narrative Resulting Agency Comment Lab Testing performed at: [place] [address] [address] [place] [id number] Poli Cochran DO LAB - CHEMISTRY DUTCH LAMB [facility] ACCOUNT BILL [address] [place] [address] * (ABNORMAL) LIPID PROFILE (2021 8:19 AM TENNIS BALL COVER CEMENTER) Cholesterol 203(H) <200 mg/dL [facility] ACCOUNT BILL Triglycerides 55 <150 mg/dL [facility] ACCOUNT BILL HDL Cholesterol 58 >40 mg/dL [facility] ACCOUNT BILL VLDL Calculated 11 <=30 mg/dL [facility] ACCOUNT BILL LDL Calculated 134(H) <130 mg/dL [facility] ACCOUNT BILL Comment:FASTING Blood BLOOD SPECIMEN / Unknown 2021 8:19 AM TENNIS BALL COVER CEMENTER 2021 Narrative Resulting Agency Comment Lab Testing performed at: [place] [address] [address] [place] [id number] Poli Cochran DO LAB - CHEMISTRY DUTCH LAMB [facility] ACCOUNT BILL [address] [place] [address] from Last 3 Months or Most Recently Relevant to Health Maintenance Care Teams Toy Assembler Relationship Specialty Start Date End Date Poli Cochran DO [address] [place] [address] PCP - General 05/17/09
--- OUTSIDE RECORDS SUMMARY | 2024-06-30 13:53 | XMS_ITS | CONTINUITY OF CARE DOCUMENT ---
Author Name ari chapman Address Unknown Organization [facility] Address [address] [place] [address] [address] [place] [address] Phone [phone] Care Team Providers Care General I Farmworker Name Role Phone Martínez Pacheco MD Unavailable [phone] JONATHAN TENORIO DO Unavailable [phone] JONATHAN TENORIO DO Unavailable [phone] INSURANCE PROVIDERS Payer name Policy type / Coverage type Lauren red democrat ID [id number] Other [id number]
--- OUTSIDE RECORDS SUMMARY | 2024-06-30 13:53 | XMS_ITS | Referral Summary ---
Author Organization [facility] Address [address] [place] [address] Care Team Providers Care Company Miner Blasting Name Role Phone Poli Cochran DO Primary Care Provider [phone] Source Comments [facility],non-owned Affiliates and Associated Physician Practices is amultiple site organization consisting of ambulatory clinics and hospital sitesin [place], [place], [place] and [place]. This disclosure is being madepursuant to the Care Everywhere program and may not contain all information available regarding this patient. Last updated 18.[facility] Allergies Active Allergy Reactions Criticality [...] Comments Blood Pressure 118/75 2021 7:41 AM ROLL PLUGGER Pulse 69 2021 7:41 AM ROLL PLUGGER Temperature 36.6 C (97.9 F) 05/02/2020 7:34 AM ROLL PLUGGER Respiratory Rate 16 2021 7:41 AM ROLL PLUGGER Oxygen Saturation 99% 05/02/2020 7:34 AM ROLL PLUGGER Inhaled Oxygen Concentration - - Weight 94.3 kg (208 lb) 2021 7:41 AM ROLL PLUGGER Height 172.7 cm (5' 8 ) 2021 7:41 AM ROLL PLUGGER Body Mass Index 31.63 2021 7:41 AM ROLL PLUGGER Plan of Treatment Not on file Procedures Procedure Name Priority Date/Time Associated Diagnosis Comments COMPREHENSIVE METABOLIC PANEL Routine 2021 8:19 AM ROLL PLUGGER Routine general medical examination at a health care facility LIPID PROFILE Routine 2021 8:19 AM ROLL PLUGGER Routine general medical examination at a health care facility from Last 3 Months or Most Recently Relevant to Health Maintenance Results * COMPREHENSIVE METABOLIC PANEL (2021 8:19 AM ROLL PLUGGER) Glucose 101 70 - 105 mg/dL [facility] [...] BLOOD SPECIMEN / Unknown 2021 8:19 AM ROLL PLUGGER 2021 Narrative Resulting Agency Comment Lab Testing performed at: [address] [place] [id number] Poli Cochran DO LAB - CHEMISTRY DUTCH LAMB [facility] ACCOUNT BILL [address] [place] [address] * (ABNORMAL) LIPID PROFILE (2021 8:19 AM ROLL PLUGGER) Cholesterol 203(H) <200 mg/dL [facility] ACCOUNT BILL Triglycerides 55 <150 mg/dL [facility] ACCOUNT BILL HDL Cholesterol 58 >40 mg/dL [facility] ACCOUNT BILL VLDL Calculated 11 <=30 mg/dL [facility] ACCOUNT BILL LDL Calculated 134(H) <130 mg/dL [facility] ACCOUNT BILL Comment:FASTING Blood BLOOD SPECIMEN / Unknown 2021 8:19 AM ROLL PLUGGER 2021 Narrative Resulting Agency Comment Lab Testing performed at: [facility] [address] [place] [id number] Poli Cochran DO LAB - CHEMISTRY DUTCH LAMB [facility] ACCOUNT BILL [address] [place] [address] from Last 3 Months or Most Recently Relevant to Health Maintenance Care Teams Company [employer] Relationship Specialty Start Date End Date Poli Cochran DO [address] [place] [address] PCP - General 05/17/09
--- OUTSIDE RECORDS SUMMARY | 2024-06-30 13:53 | XMS_ITS | Continuity of Care Document ---
Author Organization [facility] Address [address] [place] [address] Phone Care Team Providers Care Web Ui Developer Name Role Phone [facility] Unavailable Unavailable Advance Directives Directive Yes / No Effective Date File Name No Information Encounters Encounter Description Practice Location Reason(s) For Visit Diagnoses Date Provider Providers Copied on Encounter [facility], [address], [place], [address], [place] tel:[phone] [facility] No Information 5 [facility] . [address], [place], [place], [id number] . tel: [phone] Family History Family Member Type Diagnosis Age At Onset No Information Payers Payer name Insurance type Covered republican ID Authoriza tion(s) No Information Social History Type Description Quantity Date Captured Comments Sex Male Smoking Status No Information Chief Complaint And Reason For Visit No Information Reason For Referral Reason For Referral No Information History Of Present Illness Encounter Date Complaint History Of Prese nt Illness No Information Functional Status Date Functional Assessmen t No Information Instructions Date Instruction Additional Infor mation No Information Assessments Type Assessment Date No Information Patient Care Teams Name Effective Dates (start - stop) Status Members No Information
== END 2024-06-30 15:09 | disposition home or self-care (01) ==
PROVIDERS: Emergency Medicine; Emergency Provider Student in an Organized Health Care Education/Training Program; PCP Student in an Organized Health Care Education/Training Program
DX: K29.70 Gastritis, unspecified, without bleeding (principal); K21.9 Gastro-esophageal reflux disease without esophagitis
CPT/HCPCS: 36415; 71045; 80053; 81003; 83690; 84484; 85025; 93005; 96374; 99284; A9270